=== PATIENT | female | born 1970 | race Caucasian/White ===

== ENCOUNTER 2016-12-09 12:44 | Observation (INO) ==
--- NOTE | 2016-12-09 12:49 | Emergency Department Note ---
Disposition Clinical Impression: Left facial numbness, TIA (transient ischemic attack) Disposition: Admitted As Inpatient Condition: Good General Adult HPI - General Stated complaint: Neuro Symptoms Time Seen by Provider: 12/09/16 12:46 - Related Data Home Medications Medication Instructions Recorded Confirmed Albuterol Sulfate [Ventolin Hfa] 2 puff IH Q4H PRN 10/09/15 12/09/16 Duloxetine HCl [Cymbalta] 60 mg PO QAM 10/09/15 12/09/16 Gabapentin [Neurontin] 600 mg PO QID 10/09/15 12/09/16 Hyoscyamine Sulfate 0.125 mg PO TID PRN 10/09/15 12/09/16 Levalbuterol HCl [Xopenex Neb] 1.25 mg IH Q4H PRN 10/09/15 12/09/16 Montelukast [Singulair] 10 mg PO QAM 10/09/15 12/09/16 Omeprazole [PriLOSEC] 40 mg PO BID 10/09/15 12/09/16 Mometasone/Formoterol [Dulera 100 2 puff IH BID 04/16/16 12/09/16 Mcg/5 Mcg Inhaler] Potassium Chloride [Klor-Con] 10 meq PO DAILY 04/16/16 12/09/16 PredniSONE [Prednisone] 10 mg PO DAILY 04/16/16 12/09/16 Tiotropium [place] [Spiriva 2 puff IH DAILY 04/16/16 12/09/16 Respimat] TraZODone 100 mg PO HS 04/16/16 12/09/16 Nystatin POWDER [Nystop] 1 appl TP TID PRN 05/27/16 12/09/16 Ondansetron [Zofran ODT] 8 mg SL Q8H PRN 05/27/16 12/09/16 Alprazolam [Xanax 1 MG Tablet] 1 mg PO TID 12/09/16 12/09/16 Oxycodone HCl 15 mg PO Q4H PRN 12/09/16 12/09/16 Previous Rx's Medication Instructions Recorded Aspirin Enteric Coated [Aspirin EC] 81 mg PO DAILY #30 tablet. 12/10/16 Atorvastatin [Lipitor] 20 mg PO HS #30 tablet 12/10/16 Budesonide/Formoterol 160/4.5 2 puff IH BIDR inhaler 12/10/16 [Symbicort 160/4.5] Allergies Allergy/AdvReac Type Severity Reaction Status Date / Time hydrocodone [From Vicodin] Allergy Rash Verified 04/17/16 12:33 Sulfa (Sulfonamide Allergy Rash Verified 04/17/16 12:33 Antibiotics) Past Medical History - Past Medical History Medical history: Reports: asthma, COPD, GERD, hyperlipidemia, peripheral artery disease, pulmonary embolus, other Surgical history: Reports: appendectomy, cholecystectomy, other Psychiatric history: Reports: anxiety, depression - Social History Smoking Status: Current every day smoker Smokeless Tobacco Status: No Alcohol use: Reports: none Drug use: Reports: none Course Vital Signs Temperature 98 F 12/09/16 12:47 Pulse Rate 86 12/09/16 12:47 Respiratory Rate 18 12/09/16 12:47 Blood Pressure 127/60 12/09/16 12:47 O2 Sat by Pulse Oximetry 99 12/09/16 12:47 Temperature 98.4 F 12/10/16 12:16 Pulse Rate 98 12/10/16 12:16 Respiratory Rate 18 12/10/16 12:16 Blood Pressure 99/65 12/10/16 12:16 O2 Sat by Pulse Oximetry 96 12/10/16 12:16 Oxygen Delivery Oxygen Delivery Room Air Medical Decision Making - Lab Data Result diagrams: 12/10/16 05:40 12/10/16 06:45 Lab Results 12/09/16 12/09/16 12/09/16 Range/Units 12:49 13:00 13:00 WBC 11.2 H (4.3-11.1) K/mcL RBC 4.58 (3.82-4.97) M/mcL Hgb 12.8 (11.5-15.4) g/dL Hct 42.2 (35.3-44.9) % MCV 92.1 (83.0-100.0) fL MCH 27.9 L (28.0-33.3) pg MCHC 30.3 L (31.6-35.5) g/dL RDW 15.0 H (11.5-14.5) % Plt Count 340 (140-400) K/mcL MPV 9.3 L (9.4-12.4) fL Immature Gran % 0.3 (0-4) % Seg Neutrophils % 66.6 % Lymphocytes % 24.1 % Monocytes % 5.7 % Eosinophils % 2.9 % Basophils % 0.4 % Neutrophils # 7.5 (1.6-8.9) K/mcL Lymphocytes # 2.7 (0.6-4.6) K/mcL Monocytes # 0.6 (0.0-1.3) K/mcL Eosinophils # 0.3 (0.0-0.6) K/mcL Basophils # 0.1 (0.0-0.2) K/mcL Sodium 138 (136-145) mEq/L Potassium 4.3 (3.5-4.5) mEq/L Chloride 102 (98-109) mEq/L Carbon Dioxide 29 (19-29) mEq/L BUN 6 L (7-20) mg/dL Creatinine 0.65 (0.57-1.11) mg/dL Est GFR ( Amer) > 60 (> 60) Est GFR (Non-Af Amer) > 60 (> 60) BUN/Creatinine Ratio 9 (6-26) Glucose 97 (70-99) mg/dL POC Glucose 98 H (58-89) Calculated Osmolality 284 (280-300) Calcium 9.4 (8.6-10.8) mg/dL Troponin I (0-0.03) ng/mL 12/09/16 Range/Units 13:00 WBC (4.3-11.1) K/mcL RBC (3.82-4.97) M/mcL Hgb (11.5-15.4) g/dL Hct (35.3-44.9) % MCV (83.0-100.0) fL MCH (28.0-33.3) pg MCHC (31.6-35.5) g/dL RDW (11.5-14.5) % Plt Count (140-400) K/mcL MPV (9.4-12.4) fL Immature Gran % (0-4) % Seg Neutrophils % % Lymphocytes % % Monocytes % % Eosinophils % % Basophils % % Neutrophils # (1.6-8.9) K/mcL Lymphocytes # (0.6-4.6) K/mcL Monocytes # (0.0-1.3) K/mcL Eosinophils # (0.0-0.6) K/mcL Basophils # (0.0-0.2) K/mcL Sodium (136-145) mEq/L Potassium (3.5-4.5) mEq/L Chloride (98-109) mEq/L Carbon Dioxide (19-29) mEq/L BUN (7-20) mg/dL Creatinine (0.57-1.11) mg/dL Est GFR ( Amer) (> 60) Est GFR (Non-Af Amer) (> 60) BUN/Creatinine Ratio (6-26) Glucose (70-99) mg/dL POC Glucose (58-89) Calculated Osmolality (280-300) Calcium (8.6-10.8) mg/dL Troponin I 0.00 (0-0.03) ng/mL Attestation Statement - Attestation Attestation: I examined this patient and my medical decision-making was reviewed with the GARMENT MANUFACTURER/PA/Advanced Practice Nurse/Resident Physician. I agree with the documented findings, disposition and treatment plan as described except to the extent set forth below. [id number] time provided Symptoms started at 11:30 which is one hour and 45 minutes prior to arrival. She complains of left-sided facial numbness. She is very anxious appearing. She is visibly dyspneic and has not existing history of oxygen-dependent COPD. 13:48: I discussed this case with the telemedicine neurologist who does not recommend TPA due to NIH of 1. He recommends CTA neck and admission to our medical facility if the patient does not have large vessel occlusive disease in her neck
--- NOTE | 2016-12-09 12:57 | Emergency Department Note ---
Disposition Clinical Impression: Left facial numbness TIA (transient ischemic attack) Qualifiers: Transient cerebral ischemia type: unspecified Qualified Code(s): G45.9 - Transient cerebral ischemic attack, unspecified Disposition: Admitted As Inpatient Condition: Good Referrals: Kiley Freeman CNP [Primary Care Provider] - Time of Disposition: 15:33 Neuro HPI - General Chief Complaint: ED Neuro Symptoms/Deficit Stated Complaint: Neuro Symptoms Time Seen by Provider: 12/09/16 12:46 Source: patient Mode of arrival: ambulatory Limitations: no limitations Nursing Notes Reviewed: Yes Vital Signs Reviewed: Yes - History of Present Illness HPI Narrative: Patient is a 46-year-old female with past medical history of COPD, peripheral vascular disease, neuropathy of bilateral lower extremities. She presents today due to left-sided facial numbness. She states that this began around 11: 30 AM, roughly 1 hour prior to arrival. She denies any other numbness, tingling , weakness. She does admit to shortness of breath worsened from her baseline. She uses 3 L of nasal cannula oxygen at home for COPD. Denies any chest pain, nausea, vomiting, fevers, abdominal pain. - Related Data Home Medications: Home Medications Medication Instructions Recorded Confirmed Albuterol Sulfate [Ventolin Hfa] 2 puff IH Q4H PRN 10/09/15 05/27/16 Duloxetine HCl [Cymbalta] 60 mg PO QAM 10/09/15 05/27/16 Furosemide [Lasix] 40 mg PO QAM 10/09/15 05/27/16 Gabapentin [Neurontin] 600 mg PO QID 10/09/15 05/27/16 Hyoscyamine Sulfate 0.125 mg PO TID PRN 10/09/15 05/27/16 Levalbuterol HCl [Xopenex Neb] 1.25 mg IH Q4H PRN 10/09/15 05/27/16 Montelukast [Singulair] 10 mg PO QAM 10/09/15 05/27/16 Omeprazole [PriLOSEC] 40 mg PO BID 10/09/15 05/27/16 OxyCODONE ER (12 HR) [OxyCONTIN] 15 mg PO Q4H PRN 10/09/15 05/27/16 LORazepam [Ativan] 2 mg PO TID 04/16/16 05/27/16 Mometasone/Formoterol [Dulera 100 2 puff IH BID 04/16/16 05/27/16 Mcg/5 Mcg Inhaler] Potassium Chloride [Klor-Con] 10 meq PO DAILY 04/16/16 05/27/16 PredniSONE [Prednisone] 50 mg PO DAILY 04/16/16 05/27/16 Tiotropium [place] [Spiriva 2 puff IH DAILY 04/16/16 05/27/16 Respimat] TraZODone 100 mg PO HS 04/16/16 05/27/16 Amoxicillin/Clavulanate [Augmentin] 875 mg PO BID 05/27/16 05/27/16 Diclofenac Sodium [Voltaren] 1 appl TP QID 05/27/16 05/27/16 Nystatin POWDER [Nystop] 1 appl TP TID PRN 05/27/16 05/27/16 Ondansetron [Zofran ODT] 8 mg SL Q8H PRN 05/27/16 05/27/16 Allergies/Adverse Reactions: Allergies Allergy/AdvReac Type Severity Reaction Status Date / Time hydrocodone [From Vicodin] Allergy Rash Verified 04/17/16 12:33 Sulfa (Sulfonamide Allergy Rash Verified 04/17/16 12:33 Antibiotics) Constitutional: Denies: fever Eyes: Denies: eye pain ENT ED: Denies: ear pain Cardiovascular: Denies: chest pain Respiratory: Reports: cough, dyspnea, wheezes Gastrointestinal: Denies: abdominal pain, nausea, vomiting, diarrhea Genitourinary: Denies: urgency Musculoskeletal: Denies: back pain Integumentary: Denies: rash Neurological: Reports: numbness. Denies: headache, weakness, paresthesias Past Medical History - Past Medical History Attestation: Yes The following information was validated with the patient. Source: patient Medical history: Reports: asthma, COPD, GERD, hyperlipidemia, peripheral artery disease, pulmonary embolus, other Surgical history: Reports: appendectomy, cholecystectomy, other Psychiatric history: Reports: anxiety, depression - Social History Smoking Status: Current every day smoker Smokeless Tobacco Status: No Alcohol use: Reports: none Drug use: Reports: none Physical Exam - General Limitations: no limitations General appearance: alert, anxious - Head Head exam: atraumatic, normocephalic, normal inspection - Eye Eye exam: Present: normal appearance, PERRL, EOMI - ENT ENT exam: normal exam, normal oropharynx, mucous membranes moist - Neck Neck exam: Present: normal inspection, full ROM, trachea midline - Chest Chest inspection: Present: normal inspection, symmetric chest wall rise - Respiratory Respiratory exam: Present: wheezes (end expiratory wheezes in all lung matta) - Cardiovascular Cardiovascular exam: Present: regular rate, normal rhythm, normal heart sounds - Abdominal Exam Abdominal exam: Present: soft, Non-Tender. Absent: tenderness, distention, guarding, rebound, rigidity - Extremities Exam Extremities exam: Present: other (Mild pedal edema bilateral lower extremities, decreased sensation of bilateral lower extremities chronic for the patient.). Absent: tenderness - Neurological Exam Neurological exam: Present: alert, oriented X3, motor sensory deficit ( Decreased sensation of left forehead, left cheek, left chin to light touch.) - Psychiatric Psychiatric exam: Present: normal affect, anxious - Skin Skin exam: Present: warm, dry, intact, normal color Course Course Narrative: On exam, patient had decreased sensation on the left forehead, left cheek, left chin to light touch. Otherwise, the rest of the neuro exam was intact. NIH score 1. Will obtain a basic blood work, CT head, stroke alert was activated. Patient refused any breathing tx for shortness of breath and wheeze. 13:39 visit blood work showed mild leukocytosis. Otherwise, the rest of the blood work was not concerning. Troponin negative. EKG normal sinus rhythm with no acute ST changes. Chest x-ray negative for any acute cardiopulmonary process. CT of the head was negative for any acute intracranial process. Currently waiting on [facility] to telestroke or call me back. 13:45 Dr. Brown spoke to [facility] neurologists. He did not recommend TPA at this time. He recommended CTA of the neck. If negative for any large vessel occlusive disease, he recommended admission to [facility] for further care and workup. 15:20 CTA of neck negative for any acute abnormality. WIll admit to hospital for further care. Chest X-Ray 12/09/16 12:51 IMPRESSION: 1. No acute abnormality. D/ / Prashant Saenz MD / Prashant Saenz MD Interpreting Provider: Prashant Saenz MD Head CT 12/09/16 12:51 IMPRESSION: No acute intracranial abnormality. Critical results were called by Dr. Prashant Marsh MD to Dennis Mars on 12/09/2016 at 13:22. D/ / Prashant Marsh MD / Prashant Marsh MD Interpreting Provider: Prashant Marsh MD Neck CTA 12/09/16 13:48 IMPRESSION: Unremarkable CTA of the neck. D/ / Rock Garcia MD / Rock Garcia MD Interpreting Provider: Rock Garcia MD Vital Signs Temperature 98 F 12/09/16 12:47 Pulse Rate 86 12/09/16 12:47 Respiratory Rate 18 12/09/16 12:47 Blood Pressure 127/60 12/09/16 12:47 O2 Sat by Pulse Oximetry 99 12/09/16 12:47 Temperature 98 F 12/09/16 12:47 Pulse Rate 80 12/09/16 14:50 Respiratory Rate 18 12/09/16 14:50 Blood Pressure 119/91 12/09/16 14:50 O2 Sat by Pulse Oximetry 97 12/09/16 14:50 Oxygen Delivery Oxygen Delivery Room Air Neuro Symptoms/Deficit - MDM Narrative Medical decision making narrative: On exam, patient had decreased sensation on the left forehead, left cheek, left chin to light touch. Otherwise, the rest of the neuro exam was intact. NIH score 1. Will obtain a basic blood work, CT head, stroke alert was activated. Patient refused any breathing tx for shortness of breath and wheeze. 13:39 visit blood work showed mild leukocytosis. Otherwise, the rest of the blood work was not concerning. Troponin negative. EKG normal sinus rhythm with no acute ST changes. Chest x-ray negative for any acute cardiopulmonary process. CT of the head was negative for any acute intracranial process. Currently waiting on [facility] to telestroke or call me back. 13:45 Dr. Brown spoke to [facility] neurologists. He did not recommend TPA at this time. He recommended CTA of the neck. If negative for any large vessel occlusive disease, he recommended admission to [facility] for further care and workup. 15:20 CTA of neck negative for any acute abnormality. WIll admit to hospital for further care. - Medical Records Medical records reviewed: Yes I reviewed the patient's medical records. - Lab Data Lab results reviewed: Yes I reviewed the patient's lab results. Result diagrams: 12/09/16 13:00 12/09/16 13:00 Lab Results 12/09/16 12/09/16 12/09/16 Range/Units 12:49 13:00 13:00 WBC 11.2 H (4.3-11.1) K/mcL RBC 4.58 (3.82-4.97) M/mcL Hgb 12.8 (11.5-15.4) g/dL Hct 42.2 (35.3-44.9) % MCV 92.1 (83.0-100.0) fL MCH 27.9 L (28.0-33.3) pg MCHC 30.3 L (31.6-35.5) g/dL RDW 15.0 H (11.5-14.5) % Plt Count 340 (140-400) K/mcL MPV 9.3 L (9.4-12.4) fL Immature Gran % 0.3 (0-4) % Seg Neutrophils % 66.6 % Lymphocytes % 24.1 % Monocytes % 5.7 % Eosinophils % 2.9 % Basophils % 0.4 % Neutrophils # 7.5 (1.6-8.9) K/mcL Lymphocytes # 2.7 (0.6-4.6) K/mcL Monocytes # 0.6 (0.0-1.3) K/mcL Eosinophils # 0.3 (0.0-0.6) K/mcL Basophils # 0.1 (0.0-0.2) K/mcL Sodium 138 (136-145) mEq/L Potassium 4.3 (3.5-4.5) mEq/L Chloride 102 (98-109) mEq/L Carbon Dioxide 29 (19-29) mEq/L BUN 6 L (7-20) mg/dL Creatinine 0.65 (0.57-1.11) mg/dL Est GFR ( Amer) > 60 (> 60) Est GFR (Non-Af Amer) > 60 (> 60) BUN/Creatinine Ratio 9 (6-26) Glucose 97 (70-99) mg/dL POC Glucose 98 H (58-89) Calculated Osmolality 284 (280-300) Calcium 9.4 (8.6-10.8) mg/dL Troponin I (0-0.03) ng/mL 12/09/16 Range/Units 13:00 WBC (4.3-11.1) K/mcL RBC (3.82-4.97) M/mcL Hgb (11.5-15.4) g/dL Hct (35.3-44.9) % MCV (83.0-100.0) fL MCH (28.0-33.3) pg MCHC (31.6-35.5) g/dL RDW (11.5-14.5) % Plt Count (140-400) K/mcL MPV (9.4-12.4) fL Immature Gran % (0-4) % Seg Neutrophils % % Lymphocytes % % Monocytes % % Eosinophils % % Basophils % % Neutrophils # (1.6-8.9) K/mcL Lymphocytes # (0.6-4.6) K/mcL Monocytes # (0.0-1.3) K/mcL Eosinophils # (0.0-0.6) K/mcL Basophils # (0.0-0.2) K/mcL Sodium (136-145) mEq/L Potassium (3.5-4.5) mEq/L Chloride (98-109) mEq/L Carbon Dioxide (19-29) mEq/L BUN (7-20) mg/dL Creatinine (0.57-1.11) mg/dL Est GFR ( Amer) (> 60) Est GFR (Non-Af Amer) (> 60) BUN/Creatinine Ratio (6-26) Glucose (70-99) mg/dL POC Glucose (58-89) Calculated Osmolality (280-300) Calcium (8.6-10.8) mg/dL Troponin I 0.00 (0-0.03) ng/mL - Radiology Data Radiology results reviewed: Yes I reviewed the patient's radiology results. Chest X-Ray 12/09/16 12:51 IMPRESSION: 1. No acute abnormality. D/ / Prashant Saenz MD / Prashant Saenz MD Interpreting Provider: Prashant Saenz MD Head CT 12/09/16 12:51 IMPRESSION: No acute intracranial abnormality. Critical results were called by Dr. Prashant Marsh MD to Dennis Mars on 12/09/2016 at 13:22. D/ / Prashant Marsh MD / Prashant Marsh MD Interpreting Provider: Prashant Marsh MD Neck CTA 12/09/16 13:48 IMPRESSION: Unremarkable CTA of the neck. D/ / Rock Garcia MD / Rock Garcia MD Interpreting Provider: Rock Garcia MD - EKG Data EKG attestation: Yes I reviewed and interpreted this EKG. EKG results narrative: 12/09/2016 at 12:58. Rate 86. SC interval 134. QRS 78. QTC 431. Normal axis. No acute ST elevation or depression. Unchanged from previous EKG on 05/25 NIH Stroke Scale - Level of Consciousness LOC: Alert - LOC Questions LOC Questions: Answers both correctly - LOC Commands LOC Commands: Performs both correctly - Best Gaze Best Gaze: Normal - Visual Visual: No visual loss - Facial Palsy Facial Palsy: Normal - Motor Arms Motor Arm-Left: No drift for 10 seconds Motor Arm-Right: No drift for 10 seconds - Motor Legs Motor Leg-Left: No drift for 5 seconds Motor Leg-Right: No drift for 5 seconds - Limb Ataxia Limb Ataxia: Absent of affected limb too weak to perform exam - Sensory Sensory: Mild to moderate loss, "not as sharp" - Best Language Best Language: No aphasia - Dysarthria Dysarthria: Normal - Extinction and Inattention Extinction and Inattention: Normal - NIHSS Total Score NIHSS Total Score: 1 TPA Checklist - LKW: 3-4.5 hrs Add. Contraindications Patient/family understanding: The patient/family members have been counseled and understood the risk, benefit , and alternatives of treatment. Virgilio - Virgilio Situation: Demographics, MOA Background: Presenting Complaint, Relevant PMH, Meds, & Allergies Assessment: Vital Signs, Course and respsone to treatment, Exam Concerns, Patient/Family Expectation, Pertinant Lab Results, Outstanding Labs Recommendation: Barrier(s) to disposition, Recommendation based on pending studies, treatments, or consults SCandis Report Given to: Dr Miguel Poole Repor Time: 15:23
[2016-12-09 13:08] LABS: Basophils # 0.1 K/mcL (0.0-0.2); Basophils % 0.4 %; Eosinophils # 0.3 K/mcL (0.0-0.6); Eosinophils % 2.9 %; Hematocrit 42.2 % (35.3-44.9); Hemoglobin 12.8 g/dL (11.5-15.4); Immature Granulocytes % 0.3 % (0-4); Lymphocytes # 2.7 K/mcL (0.6-4.6); Lymphocytes % 24.1 %; Mean Corpuscular HGB Conc 30.3 g/dL (31.6-35.5); Mean Corpuscular Hemoglobin 27.9 pg (28.0-33.3); Mean Corpuscular Volume 92.1 fL (83.0-100.0); Mean Platelet Volume 9.3 fL (9.4-12.4); Monocytes # 0.6 K/mcL (0.0-1.3); Monocytes % 5.7 %; Neutrophils # 7.5 K/mcL (1.6-8.9); Red Blood Count 4.58 M/mcL (3.82-4.97); Segmented Neutrophils % 66.6 %
[2016-12-09 13:11] LABS: Platelet Count 340 K/mcL (140-400)
[2016-12-09 13:20] LABS: BUN/Creatinine Ratio 9 (6-26); Blood Urea Nitrogen 6 mg/dL (7-20); Calcium 9.4 mg/dL (8.6-10.8); Carbon Dioxide 29 mEq/L (19-29); Chloride 102 mEq/L (98-109); Glucose 97 mg/dL (70-99); Osmolality,Calculated 284 (280-300); Potassium 4.3 mEq/L (3.5-4.5); Sodium 138 mEq/L (136-145); eGFR For African Americans > 60 (> 60); eGFR For Non-African Americans > 60 (> 60)
[2016-12-09] MEDS ORDERED: Ondansetron ODT 4 MG TAB.RAPDIS SL PRN (17:36)
[2016-12-09] MEDS ORDERED: Nystatin POWDER 30 GM BOTTLE TP PRN (17:36)
[2016-12-09] MEDS ORDERED: Levalbuterol Neb 1.25 MG/3 ML IH PRN (17:36)
--- NOTE | 2016-12-09 17:36 | Internal Med History&Physical ---
Date of Encounter: 12/09/16 Time of Encounter: 17:30 Assessment and Plan (1) TIA (transient ischemic attack) Current visit: Yes Status: Acute Patient has left facial phenotype with easier. Suspect TIA. CT scan shows no evidence to bleed. MRI of the brain without contrast will be checked in a.m. Neurology consultation. NIH stroke scale Q4 hours. Full neurology workup including echocardiogram carotid Doppler's speech therapy physical therapy occupational therapy to see the patient. Patient has been evaluated by neurologist at [facility]. NIH stroke skills only one. No TPA. I will start the patient on aspirin and statin. Heparin for DVT prophylaxis Qualifiers: Transient cerebral ischemia type: unspecified Qualified Code(s): G45.9 - Transient cerebral ischemic attack, unspecified (2) Chronic obstructive pulmonary disease without exacerbation Current visit: Yes Status: Acute Stable. She is a chronic steroids continue. Continue nebulizer treatments. (3) Peripheral neuropathy Current visit: Yes Status: Acute Qualifiers: Qualified Code(s): G62.9 - Polyneuropathy, unspecified (4) History of pulmonary embolism Current visit: Yes Status: Acute Received CoURSE OF XARELTO currently off it. Internal Medicine - H&P: HPI Chief complaint: left side facial numbness History of present illness: Ms. Stratton is a 46 year old female was morbidly obese with multiple medical problems including history of PE used between anticoagulation was around to, peripheral vascular disease, COPD on 3 L nighttime oxygen, restless leg syndrome , peripheral neuropathy presents to emergency room today with left facial numbness. Patient mentioned that since 11:30 AM she started complaining of numbness in the left side of the face and neck. She also noticed slurring over speech. She denies any focal weakness or facial symmetry. No numbness in her left side of the body other than face and neck. Her symptoms have gradually been improving. Neurology consult with [facility] I advised against administering any TPA. There recommended seachange amount of the neck which showed no evidence of vascular pathology. Patient feels that her speech is back to normal during my interview still has some facial numbness however significantly improving. Patient denies any dizziness, gate unsteadiness, nausea, vomiting, headache, double vision. Past Med Surg Social Fam HX - Past Medical History Medical history: asthma, COPD, GERD, hyperlipidemia, peripheral artery disease, pulmonary embolus, other Psychiatric history: anxiety, depression - Past Surgical History Surgical History: appendectomy, cholecystectomy, other - Social History Smoking Status: Current every day smoker Smokeless Tobacco Status: No Alcohol use: none Drug use: none - Family History Mother Living Status: Still Living Hx Family Cardiac Disorders: Yes ([place]) Internal Medicine - H&P: Meds Albuterol Sulfate [Ventolin Hfa] 2 puff IH Q4H PRN 10/09/15 [History] Duloxetine HCl [Cymbalta] 60 mg PO QAM 10/09/15 [History] Gabapentin [Neurontin] 600 mg PO QID 10/09/15 [History] Hyoscyamine Sulfate 0.125 mg PO TID PRN 10/09/15 [History] Levalbuterol HCl [Xopenex Neb] 1.25 mg IH Q4H PRN 10/09/15 [History] Montelukast [Singulair] 10 mg PO QAM 10/09/15 [History] Omeprazole [PriLOSEC] 40 mg PO BID 10/09/15 [History] Mometasone/Formoterol [Dulera 100 Mcg/5 Mcg Inhaler] 2 puff IH BID 04/16/16 [ History] Potassium Chloride [Klor-Con] 10 meq PO DAILY 04/16/16 [History] PredniSONE [Prednisone] 10 mg PO DAILY 04/16/16 [History] Tiotropium [place] [Spiriva Respimat] 2 puff IH DAILY 04/16/16 [History] TraZODone 100 mg PO HS 04/16/16 [History] Diclofenac Sodium [Voltaren] 1 appl TP QID PRN 05/27/16 [History] Nystatin POWDER [Nystop] 1 appl TP TID PRN 05/27/16 [History] Ondansetron [Zofran ODT] 8 mg SL Q8H PRN 05/27/16 [History] Alprazolam [Xanax 1 MG Tablet] 1 mg PO TID 12/09/16 [History] Oxycodone HCl 15 mg PO Q4H PRN 12/09/16 [History] Allergies hydrocodone [From Vicodin] Allergy (Verified 04/17/16 12:33) Rash Sulfa (Sulfonamide Antibiotics) Allergy (Verified 04/17/16 12:33) Rash All Systems PM: A 10-system review of systems was performed and is negative for pertinent findings except as documented above in the HPI. Review of systems: 10 point review of systems is negative except for HPI - Constitutional Vitals: Temp Pulse Resp BP Pulse Ox 97.9 F 85 16 117/80 96 12/09/16 17:05 12/09/16 17:05 12/09/16 17:05 12/09/16 17:05 12/09/16 17:05 Exam: Gen.: patient is alert oriented not in distress. Cardiac: Normal S1 S2 no additional sounds or murmurs chest: clear to auscultation abdomen soft nontender nondistended normal bowel sounds lower extremity: lax calf muscles neuro left facial hemihypothesia but crude touch same. Motor power 5/5 in all extremeties, CN 2-12 intact. speech normal. Cerebeller signs normal. Internal Med - H&P Results - Labs CBC & Chem 7: 12/09/16 13:00 12/09/16 13:00
[2016-12-09] MEDS: Aspirin Enteric Coated 81 MG Tablet PO SCH (18:15)
[2016-12-09] MEDS: *HR* OxyCODONE Immed Rel 15 MG TABLET PO PRN ×2 (18:16→22:19)
--- NOTE | 2016-12-09 19:27 | Electrocardiograph Report ---
[facility] Vizibility Test Date: 2016-12-09 Pat Name: Sariah Stratton Department: 104 Room: 2NE29 Gender: F Poultry Cleaner: EC : 1970 Requested By: Joon Brown Order Number: [id number] Reading MD: Phoebe Cerna DO Measurements Intervals [place] Rate: 86 P: 69 AL: 134 QRS: 30 QRSD: 78 T: 30 QT: 388 QTc: 431 Interpretive Statements SINUS RHYTHM WITH OCCASIONAL VENTRICULAR PREMATURE COMPLEXES LOW QRS VOLTAGE IN PRECORDIAL LEADS Electronically Signed On 12-09-2016 19:25:47 EDT by Phoebe Cerna DO
[2016-12-09] MEDS: ALPRAZolam 1 MG TABLET PO SCH (20:59)
[2016-12-09] MEDS: Gabapentin 300 MG CAPSULE PO SCH (20:59)
[2016-12-09] MEDS: Famotidine 20 MG TABLET PO SCH (21:00)
[2016-12-09] MEDS: *HR* Heparin 5,000 UNIT/ML VIAL SQ SCH (21:00)
[2016-12-09] MEDS ORDERED: (Mometasone/Formoterol [Dulera 100 Mcg/5 Mcg Inhaler]) IH SCH (21:00)
[2016-12-09] MEDS ORDERED: traZODone 50 MG TABLET PO SCH (21:00)
[2016-12-09] MEDS: Nicotine 21 MG PATCH.TD24 TD SCH (22:17)
[2016-12-10] MEDS: *HR* OxyCODONE Immed Rel 15 MG TABLET PO PRN ×4 (02:19→14:52)
[2016-12-10] MEDS: *HR* Heparin 5,000 UNIT/ML VIAL SQ SCH ×2 (05:07→14:45)
[2016-12-10 06:06] LABS: Basophils % 0.5 %; Eosinophils # 0.3 K/mcL (0.0-0.6); Eosinophils % 4.3 %; Hematocrit 37.2 % (35.3-44.9); Hemoglobin 11.3 g/dL (11.5-15.4); Immature Granulocytes % 0.3 % (0-4); Lymphocytes # 2.7 K/mcL (0.6-4.6); Lymphocytes % 34.7 %; Mean Corpuscular HGB Conc 30.4 g/dL (31.6-35.5); Mean Corpuscular Hemoglobin 28.2 pg (28.0-33.3); Mean Corpuscular Volume 92.8 fL (83.0-100.0); Monocytes # 0.6 K/mcL (0.0-1.3); Monocytes % 7.7 %; Neutrophils # 4.1 K/mcL (1.6-8.9); Platelet Count 283 K/mcL (140-400); Red Blood Count 4.01 M/mcL (3.82-4.97); Red Cell Distribution Width 14.9 % (11.5-14.5); Segmented Neutrophils % 52.5 %
[2016-12-10 07:23] LABS: BUN/Creatinine Ratio 15 (6-26); Blood Urea Nitrogen 9 mg/dL (7-20); Calcium 8.9 mg/dL (8.6-10.8); Carbon Dioxide 27 mEq/L (19-29); Chloride 105 mEq/L (98-109); Glucose 91 mg/dL (70-99); Magnesium 1.8 mg/dL (1.6-2.6); Osmolality,Calculated 288 (280-300); Potassium 4.1 mEq/L (3.5-4.5); Sodium 140 mEq/L (136-145); eGFR For African Americans > 60 (> 60); eGFR For Non-African Americans > 60 (> 60)
[2016-12-10] MEDS ORDERED: (Tiotropium Bromide [Spiriva Respimat] 2 PUFF) IH SCH (09:00)
[2016-12-10] MEDS ORDERED: predniSONE 10 MG TABLET PO SCH (09:00)
[2016-12-10] MEDS ORDERED: Tiotropium 18 MCG inhalation IH SCH (10:00)
[2016-12-10] MEDS ORDERED: Budesonide/Formoterol 160/4.5 MDI IH SCH (10:00)
[2016-12-10] MEDS: Aspirin Enteric Coated 81 MG Tablet PO SCH (10:08)
[2016-12-10] MEDS: Gabapentin 300 MG CAPSULE PO SCH ×2 (10:12→13:24)
[2016-12-10] MEDS: Nicotine 21 MG PATCH.TD24 TD SCH (10:13)
[2016-12-10] MEDS: Famotidine 20 MG TABLET PO SCH (10:14)
[2016-12-10] MEDS: ALPRAZolam 1 MG TABLET PO SCH ×2 (10:16→14:44)
--- NOTE | 2016-12-10 10:40 | ECHO - Doppler Report ---
Echo with Saline Contrast Name: Sariah Stratton Date of Study: 12/10/2016 Date: 1970 Ht: 62.0 in Medical Record#: [id number] Age: 46 Wt: 236.0 lb Gender: Female BSA: 2.05 Order #: [id number] Location: [facility] Room #: [id number] Reading Physician: Rafael Oro MD, [facility] [employer] Supervisor: Landen Pastor RN Ordering Physician: Moises Rivera MD Primary Physician: Kiley Freeman CNP Indications: Transient Ischemic Attack Impressions: Normal LV systolic function, LVEF 60-65%. Normal left ventricular diastolic function. Normal right ventricular size and function. No significant valvular dysfunction. No evidence of intracardiac shunting with agitated saline contrast. Left Ventricular Wall Motion: Rest Echo Findings All wall segments showed normal motion. Findings: Study Quality * Technically adequate exam. ECG Findings * Normal sinus rhythm. Left Ventricle * Normal LV systolic function, LVEF 60-65%. * Normal LV chamber size and wall thickness. * Normal left ventricular diastolic function. Right Ventricle * Normal right ventricular size and function. Left Atrium * Normal left atrial size. Right Atrium * Normal right atrial size. Interatrial Septum * No evidence of intracardiac shunting with agitated saline contrast. Aorta * Normally sized aortic root. Pericardium * There is no pericardial effusion present. IVC * Normal IVC dimensions and inspiratory collapse. Aortic Valve * Aortic valve not well visualized. Appears trileaflet. * No aortic stenosis. * No aortic regurgitation. Mitral Valve * Normal mitral valve structure. * No mitral stenosis. * Trace mitral regurgitation. Tricuspid Valve * Normal tricuspid valve structure. * No tricuspid stenosis. * Trace tricuspid regurgitation. * Unable to estimate RVSP due to lack of TR jet. Pulmonic Valve * Pulmonic valve not well visualized. * No pulmonic stenosis. * Trace pulmonic regurgitation. History History of Smoking Years 32 Packs 1 Family History of CAD 03/20/2015 a Previous Echo was performed. Contrast: Agitated saline 20 ml. Measurements: BP: 99/ 52 2D Normal Values RVIDd: 2.60 cm IVSd: 1.00 cm 0.6 - 1.0 cm LVIDd: 4.50 cm 3.7 - 5.6 cm LVPWd: 1.00 cm 0.6 - 1.1 cm LVIDs: 3.00 cm 1.5 - 3.6 cm AO: 2.50 cm < 4.0 cm %FS: 33.30 cm >25 % LA volume: 44 Mitral Valve Peak E:.81 m/sec Peak A:.61 m/sec E/A Ratio:1.3 Updated by Rafael Oro MD, [facility] on 12/10/2016 10:35:31 AM electronically signed on 12/10/2016 10:36:14 AM with status of Final Wall Motion Valadez: 1=Normal, 2=Hypokinesis, 3=Akinesis, 4=Dyskinesis, 5=Aneurysmal, 6=Hyperkinetic, X=Not Visualized (Blank)=Missing
[2016-12-10 12:19] VITALS: BP 99/65
--- NOTE | 2016-12-10 15:19 | Discharge Summary ---
Date of Encounter: 12/09/16 Time of Encounter: 15:15 - Discharge Diagnosis (1) TIA (transient ischemic attack) Priority: Primary Status: Acute Qualifiers: Transient cerebral ischemia type: unspecified Qualified Code(s): G45.9 - Transient cerebral ischemic attack, unspecified (2) Left facial numbness Priority: Primary Status: Acute (3) Tobacco use disorder Priority: Secondary Status: Acute (4) Chronic obstructive pulmonary disease without exacerbation Priority: Secondary Status: Acute (5) Morbid obesity Priority: Secondary Status: Acute Qualifiers: Obesity type: due to excess calories Qualified Code(s): E66.01 - Morbid ( severe) obesity due to excess calories - Discharge Medications Prescriptions: Aspirin Enteric Coated [Aspirin EC] 81 mg PO DAILY #30 tablet. Atorvastatin [Lipitor] 20 mg PO HS #30 tablet Home Medications: Albuterol Sulfate [Ventolin Hfa] 2 puff IH Q4H PRN 10/09/15 [History] Duloxetine HCl [Cymbalta] 60 mg PO QAM 10/09/15 [History] Gabapentin [Neurontin] 600 mg PO QID 10/09/15 [History] Hyoscyamine Sulfate 0.125 mg PO TID PRN 10/09/15 [History] Levalbuterol HCl [Xopenex Neb] 1.25 mg IH Q4H PRN 10/09/15 [History] Montelukast [Singulair] 10 mg PO QAM 10/09/15 [History] Omeprazole [PriLOSEC] 40 mg PO BID 10/09/15 [History] Mometasone/Formoterol [Dulera 100 Mcg/5 Mcg Inhaler] 2 puff IH BID 04/16/16 [ History] Potassium Chloride [Klor-Con] 10 meq PO DAILY 04/16/16 [History] PredniSONE [Prednisone] 10 mg PO DAILY 04/16/16 [History] Tiotropium [place] [Spiriva Respimat] 2 puff IH DAILY 04/16/16 [History] TraZODone 100 mg PO HS 04/16/16 [History] Nystatin POWDER [Nystop] 1 appl TP TID PRN 05/27/16 [History] Ondansetron [Zofran ODT] 8 mg SL Q8H PRN 05/27/16 [History] Alprazolam [Xanax 1 MG Tablet] 1 mg PO TID 12/09/16 [History] Oxycodone HCl 15 mg PO Q4H PRN 12/09/16 [History] Aspirin Enteric Coated [Aspirin EC] 81 mg PO DAILY #30 tablet. 12/10/16 [Rx] Atorvastatin [Lipitor] 20 mg PO HS #30 tablet 12/10/16 [Rx] Budesonide/Formoterol 160/4.5 [Symbicort 160/4.5] 2 puff IH BIDR inhaler [Rx] Allergies/Adverse Reactions: Allergies hydrocodone [From Vicodin] Allergy (Verified 04/17/16 12:33) Rash Sulfa (Sulfonamide Antibiotics) Allergy (Verified 04/17/16 12:33) Rash Procedures/tests Complete & Pending: Procedures Performed prior 72 hours Category Date Time Status MR head/brain wo con [MR] Routine MRI 12/09/16 17:08 Completed EV carotid duplex imaging BI Routine Y 12/10/16 17:02 Completed EV echocardiogram Routine Y 12/10/16 17:02 Completed Date of admission: 12/09/16 15:45 Primary care physician: Kiley Freeman CNP Consults: 12/09/16 17:02 Consult to Occupational Therapy [CONS] Routine Comment: Evaluate, develop and implement POC Consult to Physical Therapy [CONS] Routine Comment: Evaluate, develop and implement POC Consult to Speech Therapy [CONS] Routine Comment: Evaluate, develop and implement POC Reason for Consult: Tia Call Completed: No Discharging clinician: Cruzito Mccracken - Patient Status Disposition: Home, Self-Care Condition: Good Functional capacity at discharge: independent ambulation Overall status at discharge: patient is progressing back to baseline - Discharge Instructions Instructions: Transient Ischemic Attack (DC), Transient Ischemic Attack (GEN), Asthma (DC), Chronic Obstructive Pulmonary Disease (DC), Cigarette Smoking and Your Health, Workers' Compensation Claims Supervisor (GEN), Transient Ischemic Attack, Workers' Compensation Claims Supervisor ( GEN) Follow Up With: Kiley Freeman CNP [Primary Care Provider] - Rafael Crum DO [Partnered Physician] - Forms: ED Satisfaction Letter - Diet and Activity Activity: increase activity as tolerated Diet: low fat, low cholesterol Interval History: Ms. Stratton is a 46 year old female was morbidly obese with multiple medical problems including history of PE used between anticoagulation was around to, peripheral vascular disease, COPD on 3 L nighttime oxygen, restless leg syndrome , peripheral neuropathy presents to emergency room today with left facial numbness. Patient mentioned that since 11:30 AM she started complaining of numbness in the left side of the face and neck. She also noticed slurring over speech. She denies any focal weakness or facial symmetry. No numbness in her left side of the body other than face and neck. Her symptoms have gradually been improving. Neurology consult with [facility] I advised against administering any TPA. There recommended seachange amount of the neck which showed no evidence of vascular pathology. Patient feels that her speech is back to normal during my interview still has some facial numbness however significantly improving. Patient denies any dizziness, gate unsteadiness, nausea, vomiting, headache, double vision Hospital course: Patient was hospitalized. CT head: Negative for any acute infarct. MRI head: Negative for any acute infarct. CTA neck: Negative for any obstruction. Ultrasound carotid: No obstructive lesion. This was a tentative report the final report is not finalized yet Echocardiogram: Ejection fraction 55% All results were discussed with the patient at length. Patient was prescribed aspirin 81 mg. Patient was prescribed Lipitor. Side effects of the new medication prescription discussed along with the effects at length. Patient verbalized understanding Looking incision discussed with the patient and her for more than 20 minutes. Plan: Patient can go home today. She will follow-up with PCP in 1-2 weeks. She will follow up with urology in 1-2 weeks. At time of discharge patient does not have any question concern uopdates or recommendations regarding her stay. - Time Spent with Patient Total time spent providing and/or coordinating discharge services: - Constitutional Vitals: Temp Pulse Resp BP Pulse Ox 98.4 F 98 18 99/65 96 12/10/16 12:16 12/10/16 12:16 12/10/16 12:16 12/10/16 12:16 12/10/16 12:16 - Head Head exam: Present: atraumatic, normocephalic - Eye Eye exam: Present: PERRL, conjuntiva pink, sclera anicteric Pupils: Present: PERRL - Neck Neck exam general surgery: Present: supple, trachea midline. Absent: lymphadenopathy - Respiratory Respiratory exam: Present: CTAB. Absent: accessory muscle use, rales, rhonchi, wheezes - Cardiovascular Cardiovascular exam: Present: RRR, +S1, +S2. Absent: diastolic murmur, gallop, rubs, systolic murmur - GI/Abdominal GI/Abdominal exam: Present: normal bowel sounds, soft, no peritoneal signs. Absent: distended, tenderness - Extremities Exam Extremities exam: Present: warm, radial pulses palpable and symetrical. Absent : calf tenderness, cyanotic, pedal edema - Neurological Exam Neurological exam: Present: CN II-XII intact, oriented X3, no focal deficits. Absent: pronater drift, facial droop, speech deficit - Skin Skin exam: Present: dry, intact
--- NOTE | 2016-12-10 20:53 | Carotid Imaging Report ---
Carotid Duplex Patient Name:Sariah Stratton Order Number:[id number] Procedure Date:12/10/2016 Date:1970Age:46 yrs Gender:Female Lt BP:108 / 75 mmHg Rt.BP:99 / 74 mmHgHeart Rate: Location:[facility] Room #: 2NE29 Control Supervisor:Landen Pastor RN Referring MD:Moises Rivera MD vp home health:Kiley Freeman, RN ORTHO Reading MD:Yuniel Beckford MD , FACS Primary Indications:Transient Ischemic Attack Risk Factors Yes/No Hypertension No Diabetes No Hypercholesterolemia No Smoking Current Yes Hx of TIA No Hx of CVA No Anticoagulants No Hx of CAD/PTCA No Previous Vascular Surgery No Impressions: Findings: Bilateral carotid systems are essentially normal. Recommendations: Test completed on 12/10/2016 at 9:00:00 am. Findings Carotid Duplex: Jolley scale imaging combined with Doppler flow analysis suggests normal findings bilaterally. Right: The right proximal common carotid artery has a PSV of 147 cm/s and a EDV of 46 cm/s. The right mid common carotid artery has a PSV of 107 cm/s and a EDV of 36 cm/s. The right distal common carotid artery has a PSV of 79 cm/s and a EDV of 31 cm/s. The right bifurcation has a PSV of 75 cm/s and a EDV of 30 cm/s. The right proximal internal carotid artery has a PSV of 105 cm/s and a EDV of 38 cm/s. The right mid internal carotid artery has a PSV of 91 cm/s and a EDV of 34 cm/s. The right distal internal carotid artery has a PSV of 72 cm/s and a EDV of 34 cm/s. The right eca has a PSV of 118 cm/s and a EDV of 19 cm/s. The right vertebral artery has a PSV of 68 cm/s and a EDV of 22 cm/s. Left: The left proximal common carotid artery has a PSV of 138 cm/s and a EDV of 39 cm/s. The left mid common carotid artery has a PSV of 103 cm/s and a EDV of 31 cm/s. The left distal common carotid artery has a PSV of 93 cm/s and a EDV of 33 cm/s. The left bifurcation has a PSV of 101 cm/s and a EDV of 35 cm/s. The left proximal internal carotid artery has a PSV of 97 cm/s and a EDV of 34 cm/s. The left mid internal carotid artery has a PSV of 86 cm/s and a EDV of 31 cm/s. The left distal internal carotid artery has a PSV of 98 cm/s and a EDV of 42 cm/s. The left eca has a PSV of 121 cm/s and a EDV of 9 cm/s. The left vertebral artery has a PSV of 64 cm/s and a EDV of 22 cm/s. Prior Study: No prior study available for comparison. Carotid Results Right PSV EDV Assessment Proximal CCA 147 46 Normal Mid CCA 107 36 Normal Distal CCA 79 31 Normal Bifurcation 75 30 Normal Proximal ICA 105 38 Normal Mid ICA 91 34 Normal Distal ICA 72 34 Normal ECA 118 19 Normal Vertebral Artery 68 22 Normal Left PSV EDV Assessment Proximal CCA 138 39 Normal Mid CCA 103 31 Normal Distal CCA 93 33 Normal Bifurcation 101 35 Normal Proximal ICA 97 34 Normal Mid ICA 86 31 Normal Distal ICA 98 42 Normal ECA 121 9 Normal Vertebral Artery 64 22 Normal Ratio's Right ICA/CCA Ratio: 0.98 ICA/CCA Values: 105/107 Left ICA/CCA Ratio: 0.94 ICA/CCA Values: 97/103 Updated by Yuniel Beckford MD, FACS on 12/10/2016 8:47:52 PM Yuniel Beckford MD electronically signed on 12/10/2016 8:48:32 PM with status of Final
== END 2016-12-10 17:00 | disposition home or self-care (01) ==
LOC: EMEROO 12:44 → 2NENU 12:44
PROVIDERS: ADMIT Hospitalist; ATTEND Internal Medicine

== ENCOUNTER 2018-07-14 12:45 | Inpatient (IN) ==
--- NOTE | 2018-07-14 13:38 | Emergency Department Note ---
Disposition Clinical Impression: Right wrist pain, Failure of outpatient treatment Cat bite Qualifiers: Encounter type: initial encounter Qualified Code(s): W55.01XA - Bitten by cat, initial encounter Disposition: Admitted As Inpatient Condition: Fair Referrals: Kiley Freeman CNP [Primary Care Provider] - Time of Disposition: 14:48 Animal Bite HPI - General Chief Complaint: ED Animal Bite Stated Complaint: cat bite Time Seen by Provider: 07/14/18 13:12 Source: patient Limitations: no limitations Nursing Notes Reviewed: Yes Vital Signs Reviewed: Yes - History of Present Illness HPI Narrative: 48 year old female presents for a cat bite on right wrist. Patient states that 4 days ago, she got bit while trying to pet a stray cat. States she was bitten just once. The next day, she went to urgent care where she received an antibiotic shot and prescription for augmentin. The day after that, patient noti nithya increased swelling and hardness to area. Patient describes sharp shooting pain 8/10, worse with making a fist. Patient states that making a fist causes a "pulling" feeling on her forearm. Patient has been continuing augmentin. Has been using triple antibiotic ointment, alcohol, and ice. Tried tylenol without relief. Patient states that she can't hold anything with her right hand due to pain. Last tetanus shot was 4-5 years ago. Cat was not foaming at the mouth or acting unusual. Patient normally feeds the stray cats and states that she's petted that particular cat without issue before. - Related Data Home Medications Medication Instructions Recorded Confirmed ALPRAZolam [Xanax 1 MG Tablet] 1 mg PO TID PRN 02/01/18 02/01/18 Amoxicillin/Clavulanate [Augmentin] 875 mg PO BIDWM 02/01/18 02/01/18 Aspirin 81 mg PO DAILY 02/01/18 02/01/18 Atorvastatin Calcium [Lipitor] 20 mg PO HS 02/01/18 02/01/18 Cyclobenzaprine [Flexeril] 10 mg PO HS 02/01/18 02/01/18 Duloxetine HCl [Cymbalta] 60 mg PO DAILY 02/01/18 02/01/18 Fluticasone Propionate Nasal 1 spr NS DAILY PRN 02/01/18 02/01/18 [Flonase] Furosemide [Lasix] 20 mg PO DAILY PRN 02/01/18 02/01/18 Gabapentin [Neurontin] 600 mg PO QID 02/01/18 02/01/18 Hyoscyamine SL [Levsin SL] 0.125 mg SL TID 02/01/18 02/01/18 Mometasone/Formoterol [Dulera 200 2 puff IH BID 02/01/18 02/01/18 Mcg/5 Mcg Inhaler] Montelukast [Singulair] 10 mg PO HS 02/01/18 02/01/18 Omeprazole [PriLOSEC] 40 mg PO DAILY 02/01/18 02/01/18 Oxycodone HCl 15 mg PO 5XD 02/01/18 02/01/18 Potassium Chloride [K-Tab ER] 10 meq PO DAILY 02/01/18 02/01/18 Tiotropium [place] [Spiriva 2 puff IH DAILY 02/01/18 02/01/18 Respimat] Trazodone HCl 100 mg PO HS 02/01/18 02/01/18 Previous Rx's Medication Instructions Recorded Amoxicillin/Clavulanate [Augmentin] 875 mg PO BID #20 tablet 07/10/18 Allergies Allergy/AdvReac Type Severity Reaction Status Date / Time hydrocodone [From Vicodin] Allergy Rash Verified 07/10/18 15:35 Sulfa (Sulfonamide Allergy Swelling Verified 07/10/18 15:35 Antibiotics) of Lip/Tongue/Throat Buspirone [From BuSpar] AdvReac Difficulty Verified 07/10/18 15:35 Breathing cefdinir AdvReac Diarrhea Verified 07/10/18 15:35 clindamycin AdvReac Hives Verified 07/10/18 15:35 Constitutional: Denies: fever, chills Eyes: Denies: eye pain, eye discharge ENT ED: Denies: ear pain, throat pain Cardiovascular: Denies: chest pain, palpitations Respiratory: Denies: cough, dyspnea Gastrointestinal: Denies: abdominal pain, nausea Genitourinary: Denies: urgency, dysuria Musculoskeletal: Denies: back pain, neck pain Integumentary: Denies: rash, abrasion Neurological: Denies: headache, weakness Past Medical History - Past Medical History Medical history: Reports: non-contributory Surgical history: Reports: appendectomy, cholecystectomy, hysterectomy, other Psychiatric history: Reports: anxiety, depression - Social History Smoking Status: Current every day smoker Smokeless Tobacco Status: No Alcohol use: Reports: none Drug use: Reports: none Physical Exam - General Limitations: no limitations General appearance: alert, in no apparent distress - Head Head exam: atraumatic, normocephalic - Eye Eye exam: Present: PERRL, EOMI. Absent: scleral icterus, conjunctival injection - ENT ENT exam: normal oropharynx, mucous membranes moist - Neck Neck exam: Present: normal inspection - Chest Chest inspection: Present: normal inspection, symmetric chest wall rise - Respiratory Respiratory exam: Present: normal lung sounds bilaterally. Absent: respiratory distress - Cardiovascular Cardiovascular exam: Present: regular rate, normal rhythm - Abdominal Exam Abdominal exam: Present: soft, Non-Tender, normal bowel sounds. Absent: distention, guarding, rebound, rigidity - Extremities Exam Extremities exam: Present: tenderness, normal capillary refill, other (Right hand pitting edema 1+. Puncture landon observed on dorsal and ventral right wrist. Dorsal puncture landon is erythematous with serosanguinous drainage. Swelling and tenderness over right dorsal wrist. No fluctuance. Right wrist ROM limited with supination due to pain. Elbow flexion and extension full and intact. Right hand construction safety consultant strength 4/5 due to pain. Neurovascularly intact. ). Absent: full ROM, pedal edema, joint swelling - Neurological Exam Neurological exam: Present: alert, oriented X3 - Psychiatric Psychiatric exam: Present: normal affect, normal mood - Skin Skin exam: Present: warm, dry, intact, normal color Course Course Narrative: 48 year old female presents for increased swelling and pain after cat bite to right wrist 4 days ago. Pain exacerbated by ROM that causes pulling sensation in forearm. Failed outpatient augmentin therapy. Patient is alert and oriented. Patient is tachycardic and tachypneic. Patient is not in any acute distress. On exam, right wrist and hand are swollen without erythema. Wrist ROM is limited with supination secondary to pain. There is tenderness to palpation. No fluctuance. There is a puncture landon on dorsal wrist that is open and erythematous with serosanguinous drainage. Patient meets SIRS criteria with source of infection. Will check CBC/BMP. Will start patient on Unasyn. Hospita list recommended admitting to Ortho service due to concern for sheath tendinitis. Ortho was paged. - Reevaluation(s) Reevaluation #1: CBC and BMP are unremarkable. Orthopedic Surgeon Dr. Romero agrees to serve as consult. Dr. Romero requests patient be admitted to hospitalist service. Hospitalist agrees to admit patient. Will order CRP/ESR and CT right UE with contrast, per Ortho. Ortho will followup on CT results. Hospitalist will follow lab results. Time: 14:45 Vital Signs Temperature 98.5 F 07/14/18 12:52 Pulse Rate 102 07/14/18 12:52 Respiratory Rate 22 07/14/18 12:52 Blood Pressure 120/76 07/14/18 12:52 O2 Sat by Pulse Oximetry 93 07/14/18 12:52 Temperature 98.5 F 07/14/18 13:23 Pulse Rate 102 07/14/18 13:23 Respiratory Rate 22 07/14/18 13:23 Blood Pressure 120/76 07/14/18 13:23 O2 Sat by Pulse Oximetry 93 07/14/18 13:23 Oxygen Delivery Oxygen Delivery Room Air Animal Bite - Medical Records Medical records reviewed: Yes I reviewed the patient's medical records. - Lab Data Lab results reviewed: Yes I reviewed the patient's lab results.
[2018-07-14] MEDS ORDERED: Ampicillin/Sulbactam 3,000 MG in 0.9 % Sodium Chloride Mini Bag 100 ML IVPB ONE (13:39)
--- NOTE | 2018-07-14 14:02 | Emergency Department Note ---
Disposition Clinical Impression: Cat bite Qualifiers: Encounter type: initial encounter Qualified Code(s): W55.01XA - Bitten by cat, initial encounter Disposition: Admitted As Inpatient Referrals: Kiley Freeman CNP [Primary Care Provider] - Forms: ED Satisfaction Letter General Adult HPI - General Chief complaint: ED Animal Bite Stated complaint: cat bite Time Seen by Provider: 07/14/18 13:12 Source: patient Limitations: no limitations - History of Present Illness Pain Scale: 3 - Related Data Home Medications Medication Instructions Recorded Confirmed ALPRAZolam [Xanax 1 MG Tablet] 1 mg PO TID PRN 02/01/18 02/01/18 Amoxicillin/Clavulanate [Augmentin] 875 mg PO BIDWM 02/01/18 02/01/18 Aspirin 81 mg PO DAILY 02/01/18 02/01/18 Atorvastatin Calcium [Lipitor] 20 mg PO HS 02/01/18 02/01/18 Cyclobenzaprine [Flexeril] 10 mg PO HS 02/01/18 02/01/18 Duloxetine HCl [Cymbalta] 60 mg PO DAILY 02/01/18 02/01/18 Fluticasone Propionate Nasal 1 spr NS DAILY PRN 02/01/18 02/01/18 [Flonase] Furosemide [Lasix] 20 mg PO DAILY PRN 02/01/18 02/01/18 Gabapentin [Neurontin] 600 mg PO QID 02/01/18 02/01/18 Hyoscyamine SL [Levsin SL] 0.125 mg SL TID 02/01/18 02/01/18 Mometasone/Formoterol [Dulera 200 2 puff IH BID 02/01/18 02/01/18 Mcg/5 Mcg Inhaler] Montelukast [Singulair] 10 mg PO HS 02/01/18 02/01/18 Omeprazole [PriLOSEC] 40 mg PO DAILY 02/01/18 02/01/18 Oxycodone HCl 15 mg PO 5XD 02/01/18 02/01/18 Potassium Chloride [K-Tab ER] 10 meq PO DAILY 02/01/18 02/01/18 Tiotropium [place] [Spiriva 2 puff IH DAILY 02/01/18 02/01/18 Respimat] Trazodone HCl 100 mg PO HS 02/01/18 02/01/18 Previous Rx's Medication Instructions Recorded Amoxicillin/Clavulanate [Augmentin] 875 mg PO BID #20 tablet 07/10/18 Allergies Allergy/AdvReac Type Severity Reaction Status Date / Time hydrocodone [From Vicodin] Allergy Rash Verified 07/10/18 15:35 Sulfa (Sulfonamide Allergy Swelling Verified 07/10/18 15:35 Antibiotics) of Lip/Tongue/Throat Buspirone [From BuSpar] AdvReac Difficulty Verified 07/10/18 15:35 Breathing cefdinir AdvReac Diarrhea Verified 07/10/18 15:35 clindamycin AdvReac Hives Verified 07/10/18 15:35 Past Medical History - Past Medical History Medical history: Reports: non-contributory Surgical history: Reports: appendectomy, cholecystectomy, hysterectomy, other Psychiatric history: Reports: anxiety, depression - Social History Smoking Status: Current every day smoker Smokeless Tobacco Status: No Alcohol use: Reports: none Drug use: Reports: none Physical Exam - General Limitations: no limitations General appearance: alert, in no apparent distress Course Vital Signs Temperature 98.5 F 07/14/18 12:52 Pulse Rate 102 07/14/18 12:52 Respiratory Rate 22 07/14/18 12:52 Blood Pressure 120/76 07/14/18 12:52 O2 Sat by Pulse Oximetry 93 07/14/18 12:52 Temperature 98.5 F 07/14/18 13:23 Pulse Rate 102 07/14/18 13:23 Respiratory Rate 22 07/14/18 13:23 Blood Pressure 120/76 07/14/18 13:23 O2 Sat by Pulse Oximetry 93 07/14/18 13:23 Oxygen Delivery Oxygen Delivery Room Air Attestation Statement - Attestation Attestation: I examined this patient and my medical decision-making was reviewed with the INTERNAL AUDIT MANAGER/PA/Advanced Practice Nurse/Resident Physician. I agree with the documented findings, disposition and treatment plan as described except to the extent set forth below. Patient was bitten by a cat and then went to an urgent care 2 days ago was placed on Augmentin and she has failed outpatient therapy with significant erythema, pain with range of motion of the wrist and concern would be for a tendon sheath or deep tissue infection. I do not palpate any crepitus. No fluctuant areas evidence. Patient is started on IV Unasyn, labs, orthopedics is paged [phone] I did speak with the orthopedist Dr. Romero who accepts the patient in consultation like the patient minutes the hospitalist. He is comfortable with Unasyn as the antibiotic and the patient did receive 3 g. He also does request a IV contrast CT scan of the right hand and wrist and we will order that as well as he requests a CRP and ESR level 1432 Patient's labs are pending, the hospitalist has accepted the patient for admission 2200
[2018-07-14 14:44] LABS: BUN/Creatinine Ratio 13 (6-26); Basophils # 0.1 K/mcL (0.0-0.2); Basophils % 0.6 %; Blood Urea Nitrogen 7 mg/dL (6-20); Calcium 8.8 mg/dL (8.6-10.3); Carbon Dioxide 29 mEq/L (23-29); Chloride 103 mEq/L (98-107); Eosinophils # 0.2 K/mcL (0.0-0.6); Eosinophils % 2.1 %; Glucose 88 mg/dL (70-105); Hematocrit 37.8 % (35.3-44.9); Hemoglobin 11.8 g/dL (11.5-15.4); Immature Granulocytes % 0.3 % (0-4); Lymphocytes # 4.8 K/mcL (0.6-4.6); Lymphocytes % 43.3 %; Mean Corpuscular HGB Conc 31.2 g/dL (31.6-35.5); Mean Corpuscular Volume 92.9 fL (83.0-100.0); Mean Platelet Volume 9.8 fL (9.4-12.4); Monocytes # 0.7 K/mcL (0.0-1.3); Monocytes % 6.6 %; Neutrophils # 5.2 K/mcL (1.6-8.9); Osmolality,Calculated 283 (280-300); Platelet Count 242 K/mcL (140-400); Potassium 4.1 mEq/L (3.5-5.1); Red Blood Count 4.07 M/mcL (3.82-4.97); Red Cell Distribution Width 13.4 % (11.5-14.5); Segmented Neutrophils % 47.1 %; Sodium 138 mEq/L (136-145); eGFR For Non-African Americans > 60 (> 60)
[2018-07-14] MEDS ORDERED: Isovue-370 500 ML INFUS..BTL IV ONE (14:45)
[2018-07-14 14:58] LABS: C-Reactive Protein 78 mg/L (Less than 10)
[2018-07-14] MEDS ORDERED: Naloxone 0.4 MG/ML INJ IVP PRN (15:40)
[2018-07-14] MEDS ORDERED: Fluticasone Propionate Nasal 50 MCG/SPRAY BOTTLE NS PRN (15:41)
[2018-07-14] MEDS ORDERED: Furosemide 20 MG TABLET PO PRN (15:41)
[2018-07-14] MEDS ORDERED: *HR* OxyCODONE Immed Rel 15 MG TABLET PO SCH ×2 (15:45→23:00)
--- NOTE | 2018-07-14 16:16 | Internal Med History&Physical ---
Date of Encounter: 07/14/18 Time of Encounter: 16:14 Internal Medicine - H&P: HPI Chief complaint: cat bite Admitted From: Home Plans for Post Hospital Care: Home History of present illness: Ms. Stratton is a 48 year old female with PMH of Anxiety, HTN, GERD, Morbid Obesity who sustained a cat bite while trying to pet a stray rene 4 days ago,she was initially on Augmentin as outpatient but her hand continues to be painful and red, as well as worsening pain with movement, she denies fever or chills, she has no n/v/d, she has no abdominal symptoms, she has no CP/SOB/ankle edema She has no or GI symptoms and no neurologic symptoms Her chronic medical conditions are stable Last tetanus shot about 3-4 yeas ago She was started on Unasyn in the ER , Ortho consulted and recommended extremity CT scan with contrast which showed diffuse dorsal subcutaneous edema suspicious for cellulitis as well as suspected tenosynovitis of the first dorsal extensor compartment tendons likely infectious. Patient is afebrile, she has no leukocytosis , chemistries unremarkable, CRP 17, ESR 83. She is admitted as inpatient for management of right hand cellulitis secondary to cat bite with failure of outpatient therapy. Orthopedics will be seen in consult. Past Med Surg Social Fam HX - Past Medical History Medical history: GERD Additional medical history: bronchitis, neuropathy, ibs, chronic pain, anemia, RLS. Anemia. Depression. vocal cord dysfunction. diverticulosis. neuropathy of feet. Hemorrhoid./rectal bleeding. RAD. right breast mass. anxiety. DDD, lumbar. Exacerbation of reactive airway dx Psychiatric history: anxiety, depression - Past Surgical History Surgical History: appendectomy, cholecystectomy, hysterectomy, other Additional surgical history: tarsal tunnel, tubal, uterine ablation, saphenous vein ablation right leg. Hysterectomy - Social History Smoking Status: Current every day smoker Smokeless Tobacco Status: No Alcohol use: none Drug use: none - Family History Mother Living Status: Still Living Hx Family Cardiac Disorders: Yes ([place]) Internal Medicine - H&P: Meds ALPRAZolam [Xanax 1 MG Tablet] 1 mg PO TID PRN 02/01/18 [History] Aspirin 81 mg PO DAILY 02/01/18 [History] Atorvastatin Calcium [Lipitor] 20 mg PO HS 02/01/18 [History] Cyclobenzaprine [Flexeril] 10 mg PO HS 02/01/18 [History] Duloxetine HCl [Cymbalta] 60 mg PO DAILY 02/01/18 [History] Fluticasone Propionate Nasal [Flonase] 1 spr NS DAILY PRN 02/01/18 [History] Furosemide [Lasix] 20 mg PO DAILY PRN 02/01/18 [History] Gabapentin [Neurontin] 600 mg PO QID 02/01/18 [History] Mometasone/Formoterol [Dulera 200 Mcg/5 Mcg Inhaler] 2 puff IH BID 02/01/18 [History] Montelukast [Singulair] 10 mg PO HS 02/01/18 [History] Omeprazole [PriLOSEC] 40 mg PO DAILY 02/01/18 [History] Oxycodone HCl 15 mg PO 5XD 02/01/18 [History] Potassium Chloride [K-Tab ER] 10 meq PO DAILY 02/01/18 [History] Tiotropium [place] [Spiriva Respimat] 2 puff IH DAILY 02/01/18 [History] Trazodone HCl 100 mg PO HS 02/01/18 [History] Amoxicillin/Clavulanate [Augmentin] 875 mg PO BID #20 tablet 07/10/18 [Rx] Allergy/AdvReac Type Severity Reaction Status Date / Time hydrocodone [From Vicodin] Allergy Rash Verified 07/10/18 15:35 Sulfa (Sulfonamide Allergy Swelling Verified 07/10/18 15:35 Antibiotics) of Lip/Tongue/Throat Buspirone [From BuSpar] AdvReac Difficulty Verified 07/10/18 15:35 Breathing cefdinir AdvReac Diarrhea Verified 07/10/18 15:35 clindamycin AdvReac Hives Verified 07/10/18 15:35 All Systems PM: A 10-system review of systems was performed and is negative for pertinent findings except as documented above in the HPI. - Constitutional Constitutional: no chills, no fever(s), no night sweats - EENT Eyes: no change in vision, no discharge, no pain, no photophobia Ears: no ear discharge, no ear pain, no tinnitus Nose, mouth and throat: no dysphagia, no nasal discharge, no neck pain, no sore throat - Cardiovascular Cardiovascular ROS IM: no chest pain, no diaphoresis, no dyspnea, no lightheadedness, no palpitations, no syncope - Respiratory Respiratory: no cough, no dyspnea, no wheezing, no excessive phlegm production - Gastrointestinal Gastrointestinal: no abdominal pain, no diarrhea, no hematemesis, no hematochezia, no melena, no nausea, no vomiting - Genitourinary Genitourinary: no change in urinary stream, no dysuria, no flank pain, no hematuria - Musculoskeletal Musculoskeletal ROS IM: as per HPI - Integumentary Integumentary IM: as per HPI - Neurological Neurological ROS: no confusion, no convulsions, no focal weakness, no numbness, no tingling, no tremor(s) - Hematologic/Lymphatic Hematologic/Lymphatic: no easy bruising - Constitutional Vitals: Temp Pulse Resp BP Pulse Ox 98.5 F 81 15 126/79 93 07/14/18 13:23 07/14/18 15:57 07/14/18 15:57 07/14/18 15:57 07/14/18 13:23 General appearance: Present: A&O X 3, morbidly obese, pleasant, no acute distress Exam: see below - Head Head exam: Present: atraumatic, normocephalic - Eye Eye exam: Present: PERRL, conjuntiva pink, sclera anicteric Pupils: Present: PERRL - Neck Neck exam general surgery: Present: supple, trachea midline. Absent: lymphad enopathy - Respiratory Respiratory exam: Present: CTAB. Absent: accessory muscle use, rales, rhonchi, wheezes - Cardiovascular Cardiovascular exam: Present: RRR, +S1, +S2. Absent: diastolic murmur, gallop, rubs, systolic murmur - GI/Abdominal GI/Abdominal exam: Present: normal bowel sounds, soft, no peritoneal signs. Absent: distended, tenderness - Extremities Exam Extremities exam: Absent: pedal edema Additional comments: Right wrist with mild tenderness, swelling and erythema, normal capillary refill, two puncture daley ,one on each flexor and extensor surface with very minimal serosanguinous fluid, no palpable abscesses, no induration, no flutucance. '' - Neurological Exam Neurological exam: Present: alert, CN II-XII intact, oriented X3, no focal deficits. Absent: pronater drift, facial droop, speech deficit - Skin Skin exam: Present: dry, intact Internal Med - H&P Results - Labs CBC & Chem 7: 07/14/18 14:04 07/14/18 14:04 Labs: Short CBC 07/14/18 Range/Units 14:04 WBC 11.1 (4.3-11.1) K/mcL Hgb 11.8 (11.5-15.4) g/dL Hct 37.8 (35.3-44.9) % Plt Count 242 (140-400) K/mcL Neutrophils # 5.2 (1.6-8.9) K/mcL BMP 07/14/18 14:04 Sodium 138 Potassium 4.1 Chloride 103 Carbon Dioxide 29 BUN 7 Creatinine 0.53 L Glucose 88 Calcium 8.8 - Impressions ITS Impressions Upper Extremity CT 07/14/18 14:45 IMPRESSION: 1. Diffuse dorsal subcutaneous edema, consider cellulitis. 2. Suspected tenosynovitis of the 1st dorsal extensor compartment tendons, possibly infectious. Consider MR imaging if there is concern for tendon disruption. D/ / Kt Gamez MD / Kt Gamez MD Interpreting Provider: Kt Gamez MD - Assessment and plan (1) Cellulitis Current Visit: Yes Status: Acute Assessment and plan: Patient is not septic Failed outpatient therapy with augmentin No abscess collection on CT scan However, patient has tenosynovitis, ortho following Start patient on Unasyn 3g q6h Obtain wound culture Add doxycycline 100mg q12hr, low suspicion for MRSA Continue to monitor Qualifiers: Site of cellulitis: extremity Site of cellulitis of extremity: upper extremity Laterality: right Qualified Code(s): L03.113 - Cellulitis of right upper limb (2) Cat bite Current Visit: Yes Status: Acute Assessment and plan: as in cellulitis give TT Qualifiers: Encounter type: initial encounter Qualified Code(s): W55.01XA - Bitten by cat, initial encounter (3) Tenosynovitis Current Visit: Yes Status: Acute Assessment and plan: as in cellulitis R hand CT noted, ortho is seeing in consult, will follow recommendations (4) Anxiety Current Visit: Yes Status: Chronic Assessment and plan: resume and continue home meds (5) Asthma Current Visit: Yes Status: Chronic Assessment and plan: continue home meds Qualifiers: Asthma severity: mild Asthma persistence: unspecified Asthma complication type: uncomplicated Qualified Code(s): J45.909 - Unspecified asthma, uncomplicated (6) Chronic obstructive pulmonary disease without exacerbation Current Visit: Yes Status: Chronic Assessment and plan: not in exacerbation Continue home meds (7) Morbid obesity Current Visit: Yes Status: Chronic Assessment and plan: lifestyle modification (8) Tobacco use disorder Current Visit: Yes Status: Chronic Assessment and plan: encourage cessation - Time Spent With Patient Total time spent is greater than 50% in coordination of care (as documented) at patient's floor/unit and/or counseling patient:
[2018-07-14] MEDS ORDERED: Td (TENIVAC) Vaccine 0.5 ML VIAL IM ONE (16:49)
[2018-07-14] MEDS: Gabapentin 300 MG CAPSULE PO SCH ×2 (17:08→21:00)
--- NOTE | 2018-07-14 17:31 | Orthopedic Consult Note ---
Date of Encounter: 07/14/18 Time of Encounter: 17:29 Assessment and Plan (1) Cellulitis Current Visit: Yes Status: Acute This patient has cellulitis of the right wrist radially over the first dorsal compartment after being bitten by a cat. Labs are noted. She was started on Unasyn. My recommendation is observation overnight and if no significant imp rovement we will recommend operative incision, drainage, irrigation, and debridement in the operating room. I did recommend elevation and motion exercises to reduce the risk of stiffness. At the need or drink after midnight is to go to the operating room. Qualifiers: Site of cellulitis: extremity Site of cellulitis of extremity: upper extre mity Laterality: right Qualified Code(s): L03.113 - Cellulitis of right upper limb History of Present Illness HPI: Ms. Stratton is a 48 year old female who is currently admitted to the hospitalist due to cellulitis the right wrist. 4 days ago she was bitten by a stray cat and had worsening redness, pain, and swelling. She was admitted and started on Unasyn and I was consulted to assist in the evaluation and management. On my evaluation she complains of isolated pain localized to the radial aspect of the right wrist, worse with any use and movement and better with rest. She denies any numbness, tingling, or any other associated signs or symptoms or modifying factors. She currently denies any feelings of illness. Past Med Surg Social Fam HX - Past Medical History Medical history: GERD Additional medical history: bronchitis, neuropathy, ibs, chronic pain, anemia, RLS. Anemia. Depression. vocal cord dysfunction. diverticulosis. neuropathy of feet. Hemorrhoid./rectal bleeding. RAD. right breast mass. anxiety. DDD, lumbar. Exacerbation of reactive airway dx Psychiatric history: anxiety, depression - Past Surgical History Surgical History: appendectomy, cholecystectomy, hysterectomy, other Additional surgical history: tarsal tunnel, tubal, uterine ablation, saphenous vein ablation right leg. Hysterectomy - Social History Smoking Status: Current every day smoker Smokeless Tobacco Status: No Alcohol use: none Drug use: none - Family History Mother Living Status: Still Living Hx Family Cardiac Disorders: Yes ([place]) Medications and Allergies ALPRAZolam [Xanax 1 MG Tablet] 1 mg PO TID PRN 02/01/18 [History] Aspirin 81 mg PO DAILY 02/01/18 [History] Atorvastatin Calcium [Lipitor] 20 mg PO HS 02/01/18 [History] Cyclobenzaprine [Flexeril] 10 mg PO HS 02/01/18 [History] Duloxetine HCl [Cymbalta] 60 mg PO DAILY 02/01/18 [History] Fluticasone Propionate Nasal [Flonase] 1 spr NS DAILY PRN 02/01/18 [History] Furosemide [Lasix] 20 mg PO DAILY PRN 02/01/18 [History] Gabapentin [Neurontin] 600 mg PO QID 02/01/18 [History] Mometasone/Formoterol [Dulera 200 Mcg/5 Mcg Inhaler] 2 puff IH BID 02/01/18 [History] Montelukast [Singulair] 10 mg PO HS 02/01/18 [History] Omeprazole [PriLOSEC] 40 mg PO DAILY 02/01/18 [History] Oxycodone HCl 15 mg PO 5XD 02/01/18 [History] Potassium Chloride [K-Tab ER] 10 meq PO DAILY 02/01/18 [History] Tiotropium [place] [Spiriva Respimat] 2 puff IH DAILY 02/01/18 [History] Trazodone HCl 100 mg PO HS 02/01/18 [History] Amoxicillin/Clavulanate [Augmentin] 875 mg PO BID #20 tablet 07/10/18 [Rx] Allergy/AdvReac Type Severity Reaction Status Date / Time hydrocodone [From Vicodin] Allergy Rash Verified 07/10/18 15:35 Sulfa (Sulfonamide Allergy Swelling Verified 07/10/18 15:35 Antibiotics) of Lip/Tongue/Throat Buspirone [From BuSpar] AdvReac Difficulty Verified 07/10/18 15:35 Breathing cefdinir AdvReac Diarrhea Verified 07/10/18 15:35 clindamycin AdvReac Hives Verified 07/10/18 15:35 All Systems Reviewed: Constitutional and musculoskeletal systems were reviewed and are negative unless otherwise stated in history of present illness. Physical Exam - Constitutional Vitals: Temp Pulse Resp BP Pulse Ox 98.0 F 71 16 124/85 92 07/14/18 16:19 07/14/18 16:19 07/14/18 16:19 07/14/18 16:19 07/14/18 16:19 CONSTITUTIONAL -Vitals reviewed -The patient is well developed, well nourished, well groomed PSYCHIATRIC -Fully alert and oriented -Pleasant mood RIGHT UPPER EXTREMITY Inspection shows that the skin and the soft tissue envelope are intact. On the radial side of the wrist over the first dorsal compartment there is redness and erythema associated with warmth and tenderness. Measures about 4-5 cm in diameter. Keira's is moderately positive. She is able to grossly flex and extend the digits including the thumb and circumduct the thumb without significant pain. The patient demonstrates 4+ out of 5 strength regarding elbow flexion and extension, wrist flexion and extension, and estimating manager. The patient can actively flex and extend all digits, extend the thumb, cross the index and long fingers, make an okay sign, and oppose the thumb. The fingertips are all grossly sensate and well-perfused, and the radial artery pulse is 2+. Diagnostic Imaging: I did personally review and interpret the prior wrist and hand x-rays obtained previously as well as a CT scan of the right wrist obtained today which shows diffuse soft tissue swelling and tenosynovitis of the first dorsal compartment. Results - Labs Result Diagrams: 07/14/18 14:04 07/14/18 14:04 Labs: Abnormal lab results MCHC 31.2 g/dL (31.6-35.5) L 07/14/18 14:04 Lymphocytes # 4.8 K/mcL (0.6-4.6) H 07/14/18 14:04 ESR 83 mm/hr (0-15) H 07/14/18 14:14 Creatinine 0.53 mg/dL (0.60-1.20) L 07/14/18 14:04 C-Reactive Protein 78 mg/L (Less than 10) H 07/14/18 14:04 H & H 07/14/18 Range/Units 14:04 Hgb 11.8 (11.5-15.4) g/dL Hct 37.8 (35.3-44.9) % All other labs normal. Consult Discharge Plan - Plan Referrals: Kiley Freeman, RACHNA [Primary Care Provider] -
[2018-07-14] MEDS: Doxycycline 100 MG in 0.9 % Sodium Chloride Mini Bag 100 ML IVPB SCH (17:52)
[2018-07-14] MEDS ORDERED: Ampicillin/Sulbactam 3,000 MG in 0.9 % Sodium Chloride Mini Bag 100 ML IVPB SCH (19:00)
[2018-07-14] MEDS ORDERED: Ampicillin/Sulbactam 1,500 MG in 0.9 % Sodium Chloride Mini Bag 100 ML IVPB SCH (19:00)
--- NOTE | 2018-07-14 20:17 | Anesthesia Evaluation PreOp ---
Date of Encounter: 07/14/18 Time of Encounter: 20:05 - Past History Planned Operation: Incision Drainage Rt Wrist Cardiac History: Other (Anemia) Pulmonary History: Asthma, Other (Vocal Cord Dysfunction) OVEN DAUBER History: Other (RLS) Other Medical History: Other (Morbid Obese IBS Anxiety Depression) Anesthesia History: No Prior Anesthetic Complications, Past Anesthesia (Hyste rectomy) : No ([place]) Alcohol Use: none Drug use: none Medications and Allergies ALPRAZolam [Xanax 1 MG Tablet] 1 mg PO TID PRN 02/01/18 [History] Aspirin 81 mg PO DAILY 02/01/18 [History] Atorvastatin Calcium [Lipitor] 20 mg PO HS 02/01/18 [History] Cyclobenzaprine [Flexeril] 10 mg PO HS 02/01/18 [History] Duloxetine HCl [Cymbalta] 60 mg PO DAILY 02/01/18 [History] Fluticasone Propionate Nasal [Flonase] 1 spr NS DAILY PRN 02/01/18 [History] Furosemide [Lasix] 20 mg PO DAILY PRN 02/01/18 [History] Gabapentin [Neurontin] 600 mg PO QID 02/01/18 [History] Mometasone/Formoterol [Dulera 200 Mcg/5 Mcg Inhaler] 2 puff IH BID 02/01/18 [History] Montelukast [Singulair] 10 mg PO HS 02/01/18 [History] Omeprazole [PriLOSEC] 40 mg PO DAILY 02/01/18 [History] Oxycodone HCl 15 mg PO 5XD 02/01/18 [History] Potassium Chloride [K-Tab ER] 10 meq PO DAILY 02/01/18 [History] Tiotropium [place] [Spiriva Respimat] 2 puff IH DAILY 02/01/18 [History] Trazodone HCl 100 mg PO HS 02/01/18 [History] Amoxicillin/Clavulanate [Augmentin] 875 mg PO BID #20 tablet 07/10/18 [Rx] Allergy/AdvReac Type Severity Reaction Status Date / Time hydrocodone [From Vicodin] Allergy Rash Verified 07/10/18 15:35 Sulfa (Sulfonamide Allergy Swelling Verified 07/10/18 15:35 Antibiotics) of Lip/Tongue/Throat Buspirone [From BuSpar] AdvReac Difficulty Verified 07/10/18 15:35 Breathing cefdinir AdvReac Diarrhea Verified 07/10/18 15:35 clindamycin AdvReac Hives Verified 07/10/18 15:35 - Meds/Allergy Pre-op Review Medications Reviewed: Yes Allergies Reviewed: Yes Beta Blockers on Current Med List: No Anesthesia Results - Labs 07/14/18 14:04 07/14/18 14:04 - Imaging EKG: report reviewed (Sinus Tach) Additional studies: ECHO 2017 EF 65% Anesthesia Exam O2 Sat Height 1.57 m Height 1.57 m Weight 107.955 kg Weight 107.955 kg O2 Sat by Pulse Oximetry 91 O2 Sat by Pulse Oximetry 92 O2 Sat by Pulse Oximetry 93 O2 Sat by Pulse Oximetry 93 Vital Signs Temp Pulse Resp BP Pulse Ox 98.5 F 102 22 120/76 93 07/14/18 12:52 07/14/18 12:52 07/14/18 12:52 07/14/18 12:52 07/14/18 12:52 Height: 5'2 Weight: 238 lbs NPO (# of Hours): MN Pain Scale: 1 - HEENT Pupil (Motor): Pupils equal, EOMI Mallampati: III Teeth: Normal Oral Opening: Less than or equal to 3 (Able to phonate normally) - OVEN DAUBER LOC: Oriented OVEN DAUBER Motor: Normal RUE, Normal LUE, Normal RLE, Normal LLE, Normal Face OVEN DAUBER Sensory: Normal: RUE, LUE, RLE, LLE, Face - Cardiac Rhythm: Regular Murmur: None JVD: No Carotid Bruit: No - Pulmonary Breath Sounds: bilateral Clear Respiratory Effort: Symmetrical Anesthesia Assess/Plan ASA Score: 3 ([place] IBS Anxiety Depression) Anesthetic Plan: General Monitoring Plan: Standard Monitors Recovery Plan: PACU (Discussed GA)
[2018-07-14] MEDS: *HR* OxyCODONE Immed Rel 15 MG TABLET PO SCH (21:00)
[2018-07-14] MEDS: traZODone 50 MG TABLET PO SCH (21:00)
[2018-07-14] MEDS: Ampicillin/Sulbactam 3,000 MG in 0.9 % Sodium Chloride Mini Bag 100 ML IVPB SCH (21:01)
[2018-07-14] MEDS: Budesonide/Formoterol 160/4.5 1 PUFF INH IH SCH (23:31)
[2018-07-15] MEDS: *HR* OxyCODONE Immed Rel 15 MG TABLET PO SCH ×5 (00:57→20:07)
[2018-07-15] MEDS: Ampicillin/Sulbactam 3,000 MG in 0.9 % Sodium Chloride Mini Bag 100 ML IVPB SCH ×3 (03:48→18:14)
[2018-07-15] MEDS: Acetaminophen 325 MG TABLET PO PRN (03:59)
[2018-07-15 04:58] LABS: Basophils % 0.4 %; Eosinophils # 0.3 K/mcL (0.0-0.6); Eosinophils % 2.6 %; Hematocrit 35.5 % (35.3-44.9); Hemoglobin 10.9 g/dL (11.5-15.4); Immature Granulocytes % 0.3 % (0-4); Lymphocytes # 4.3 K/mcL (0.6-4.6); Lymphocytes % 44.5 %; Mean Corpuscular HGB Conc 30.7 g/dL (31.6-35.5); Mean Corpuscular Hemoglobin 28.5 pg (28.0-33.3); Mean Corpuscular Volume 92.9 fL (83.0-100.0); Mean Platelet Volume 9.6 fL (9.4-12.4); Monocytes # 0.7 K/mcL (0.0-1.3); Monocytes % 7.2 %; Neutrophils # 4.3 K/mcL (1.6-8.9); Platelet Count 238 K/mcL (140-400); Red Blood Count 3.82 M/mcL (3.82-4.97); Red Cell Distribution Width 13.4 % (11.5-14.5)
[2018-07-15 05:09] LABS: BUN/Creatinine Ratio 13 (6-26); Blood Urea Nitrogen 7 mg/dL (6-20); Calcium 8.5 mg/dL (8.6-10.3); Carbon Dioxide 27 mEq/L (23-29); Chloride 105 mEq/L (98-107); Glucose 103 mg/dL (70-105); Osmolality,Calculated 288 (280-300); Potassium 3.5 mEq/L (3.5-5.1); Sodium 140 mEq/L (136-145); eGFR For Non-African Americans > 60 (> 60)
[2018-07-15] MEDS: Doxycycline 100 MG in 0.9 % Sodium Chloride Mini Bag 100 ML IVPB SCH ×2 (05:29→19:05)
[2018-07-15] MEDS: Aspirin 81 MG TAB.CHEW PO SCH ×2 (07:17→17:33)
[2018-07-15] MEDS: Budesonide/Formoterol 160/4.5 1 PUFF INH IH SCH ×2 (07:39→19:53)
[2018-07-15] MEDS: Tiotropium 18 MCG inhalation IH SCH (07:39)
[2018-07-15] MEDS: Gabapentin 300 MG CAPSULE PO SCH ×4 (08:56→20:08)
--- NOTE | 2018-07-15 09:59 | Internal Med Progress Note ---
Hospitalist Progress Note - Encounter Date of Encounter: 07/15/18 Time of Encounter: 09:56 - Subjective Interval History: 48 F admitted on 07/14 for R hand cellulitis and tenosynovitis following a stray cat bite She was given Td shot 07/14 She has no fever She reports her R hand swelling and pain, as well as redness has significantly improved She is been seen and followed by ortho, plan for possible surgery/I and D today - Exam Vitals: Temp Pulse Resp BP Pulse Ox 98.2 F 77 18 102/66 95 07/15/18 06:31 07/15/18 08:59 07/15/18 07:41 07/15/18 08:59 07/15/18 07:41 Exam: Vitals stable, afebrile Gen: Morbidly obese, not in distress HEENT: Moist oral mucosa, not pale, anicteric Chest: Equl chest movt bilaterally Resp: Few scattered wheezing bilaterally Heart: S1, S2 only, no m/g/r Abdomen: Soft, not tender Extremities:Right wrist with mild tenderness, swelling and erythema, normal capillary refill, two puncture daely ,one on each flexor and extensor surface with very minimal serosanguinous fluid, no palpable abscesses, no induration, no flutucance. ' - Assessment and Plan (1) Cellulitis Current Visit: Yes Status: Acute Assessment and Plan: Patient is not septic Failed outpatient therapy with augmentin No abscess collection on CT scan However, patient has tenosynovitis, ortho following Continue Unasyn 3000 mg and doxycycline 100mg q12hr, low suspicion for MRSA Continue to monitor (2) Cat bite Current Visit: Yes Status: Acute Assessment and Plan: as in cellulitis Received TT 07/14 (3) Tenosynovitis Current Visit: Yes Status: Acute Assessment and Plan: as in cellulitis R hand CT noted, ortho is seeing in consult, will follow recommendations (4) Anxiety Current Visit: Yes Status: Chronic Assessment and Plan: continue home meds (5) Asthma Current Visit: Yes Status: Chronic Assessment and Plan: continue home meds (6) Chronic obstructive pulmonary disease without exacerbation Current Visit: Yes Status: Chronic Assessment and Plan: not in exacerbation Continue home meds (7) Morbid obesity Current Visit: Yes Status: Chronic Assessment and Plan: lifestyle modification (8) Tobacco use disorder Current Visit: Yes Status: Chronic Assessment and Plan: encourage cessation NRT 21mg daily - Time Spent with Patient Total time spent is greater than 50% in coordination of care (as documented) at patient's floor/unit and/or counseling patient: Plan of Care Discussed with: patient Internal Medicine: Result - Labs CBC & Chem 7: 07/15/18 04:36 07/15/18 04:36 Labs: Short CBC 07/14/18 07/15/18 Range/Units 14:04 04:36 WBC 11.1 9.6 (4.3-11.1) K/mcL Hgb 11.8 10.9 L (11.5-15.4) g/dL Hct 37.8 35.5 (35.3-44.9) % Plt Count 242 238 (140-400) K/mcL Neutrophils # 5.2 4.3 (1.6-8.9) K/mcL BMP 07/14/18 07/15/18 14:04 04:36 Sodium 138 140 Potassium 4.1 3.5 Chloride 103 105 Carbon Dioxide 29 27 BUN 7 7 Creatinine 0.53 L 0.54 L Glucose 88 103 Calcium 8.8 8.5 L - Impressions Impressions Upper Extremity CT 07/14/18 14:45 IMPRESSION: 1. Diffuse dorsal subcutaneous edema, consider cellulitis. 2. Suspected tenosynovitis of the 1st dorsal extensor compartment tendons, possibly infectious. Consider MR imaging if there is concern for tendon disruption. D/ / 07/14/2018 16:14:46 Kt Gamez MD / kalin Interpreting Provider: Kt Gamez MD Consult Discharge Plan - Plan Referrals: Kiley Freeman, [facility]INE [Primary Care Provider] - (1) Cellulitis Qualifiers: Site of cellulitis: extremity Site of cellulitis of extremity: upper extremity Laterality: right Qualified Code(s): L03.113 - Cellulitis of right upper limb (2) Cat bite Qualifiers: Encounter type: initial encounter Qualified Code(s): W55.01XA - Bitten by cat, initial encounter (5) Asthma Qualifiers: Asthma severity: mild Asthma persistence: unspecified Asthma complication type: uncomplicated Qualified Code(s): J45.909 - Unspecified asthma, uncomplicated
[2018-07-15] MEDS: Nicotine 21 MG PATCH.TD24 TD SCH (11:03)
--- NOTE | 2018-07-15 14:30 | Anesthesia Evaluation PreOp ---
Date of Encounter: 07/15/18 Time of Encounter: 14:28 - Past History Planned Operation: I&D Right Wrist Cardiac History: Other (Anemia) Pulmonary History: Asthma, Other (Vocal Cord Dysfunction) [employer] History: Denies Any Significant HX Other Medical History: Other (Morbid Obese BMI - 43.5IBS Anxiety Depression) Anesthesia History: No Prior Anesthetic Complications, Past Anesthesia (MUltiple) : No (KIM) Alcohol Use: none Drug use: none Medications and Allergies ALPRAZolam [Xanax 1 MG Tablet] 1 mg PO TID PRN 02/01/18 [History] Aspirin 81 mg PO DAILY 02/01/18 [History] Atorvastatin Calcium [Lipitor] 20 mg PO HS 02/01/18 [History] Cyclobenzaprine [Flexeril] 10 mg PO HS 02/01/18 [History] Duloxetine HCl [Cymbalta] 60 mg PO DAILY 02/01/18 [History] Fluticasone Propionate Nasal [Flonase] 1 spr NS DAILY PRN 02/01/18 [History] Furosemide [Lasix] 20 mg PO DAILY PRN 02/01/18 [History] Gabapentin [Neurontin] 600 mg PO QID 02/01/18 [History] Mometasone/Formoterol [Dulera 200 Mcg/5 Mcg Inhaler] 2 puff IH BID 02/01/18 [History] Montelukast [Singulair] 10 mg PO HS 02/01/18 [History] Omeprazole [PriLOSEC] 40 mg PO DAILY 02/01/18 [History] Oxycodone HCl 15 mg PO 5XD 02/01/18 [History] Potassium Chloride [K-Tab ER] 10 meq PO DAILY 02/01/18 [History] Tiotropium Pilot [Spiriva Respimat] 2 puff IH DAILY 02/01/18 [History] Trazodone HCl 100 mg PO HS 02/01/18 [History] Amoxicillin/Clavulanate [Augmentin] 875 mg PO BID #20 tablet 07/10/18 [Rx] Allergy/AdvReac Type Severity Reaction Status Date / Time hydrocodone [From Vicodin] Allergy Rash Verified 07/10/18 15:35 Sulfa (Sulfonamide Allergy Swelling Verified 07/10/18 15:35 Antibiotics) of Lip/Tongue/Throat Buspirone [From BuSpar] AdvReac Difficulty Verified 07/10/18 15:35 Breathing cefdinir AdvReac Diarrhea Verified 07/10/18 15:35 clindamycin AdvReac Hives Verified 07/10/18 15:35 - Meds/Allergy Pre-op Review Medications Reviewed: Yes Allergies Reviewed: Yes Beta Blockers on Current Med List: No Anesthesia Results - Labs 07/15/18 04:36 07/15/18 04:36 ECHO 2017 EF 65% - Imaging EKG: report reviewed (ST) Anesthesia Exam O2 Sat Weight 107.958 kg O2 Sat by Pulse Oximetry 91 O2 Sat by Pulse Oximetry 95 O2 Sat by Pulse Oximetry 96 O2 Sat by Pulse Oximetry 93 O2 Sat by Pulse Oximetry 90 O2 Sat by Pulse Oximetry 96 O2 Sat by Pulse Oximetry 91 O2 Sat by Pulse Oximetry 92 Vital Signs Temp Pulse Resp BP Pulse Ox 98.5 F 102 22 120/76 93 07/14/18 12:52 07/14/18 12:52 07/14/18 12:52 07/14/18 12:52 07/14/18 12:52 NPO (# of Hours): > 8 hrs Pain Scale: 0 Pain Scale Used: Numeric (1 - 10) - HEENT Pupil (Motor): Pupils equal, EOMI Mallampati: III Teeth: Normal Oral Opening: Greater than 3 - [employer] LOC: Oriented [employer] Motor: Normal RUE, Normal LUE, Normal RLE, Normal LLE, Normal Face [employer] Sensory: Normal: RUE, LUE, RLE, LLE, Face - Cardiac Rhythm: Regular Murmur: None JVD: No Carotid Bruit: No - Pulmonary Breath Sounds: bilateral Clear Respiratory Effort: Symmetrical Anesthesia Assess/Plan ASA Score: 3 Level of consciousness: Cooperative Anesthetic Plan: General Autologous Blood: Yes Monitoring Plan: Standard Monitors Recovery Plan: PACU
[2018-07-15] MEDS ORDERED: Lidocaine -MPF 2% 2 ML VIAL ONE (15:02)
[2018-07-15] MEDS ORDERED: *HR* FentaNYL (PF) 100 MCG/2 ML VIAL ONE (15:02)
[2018-07-15] MEDS ORDERED: *HR* Propofol 200 MG/20 ML VIAL IVP ONE (15:03)
[2018-07-15] MEDS ORDERED: *HR* Midazolam HCl 2 MG/2 ML VIAL ONE (15:03)
[2018-07-15] MEDS ORDERED: Bupivacaine/EPI 1:200k 0.5%PF 30 ML VIAL ONE (15:08)
[2018-07-15] MEDS ORDERED: *HR* HYDROmorphone (PF) 1 MG/ML SYRINGE IVP PRN (16:03)
[2018-07-15] MEDS ORDERED: *HR* OxyCODONE Immed Rel 5 MG TABLET PO PRN (16:03)
[2018-07-15] MEDS ORDERED: Nicotine 21 MG PATCH.TD24 TD ONE (17:07)
--- NOTE | 2018-07-15 17:47 | Orthopedic Operative Note ---
Date of procedure: 07/15/18 Procedure: OPERATIVE REPORT SURGEON: Kevin Miller MD PREOPERATIVE DIAGNOSIS: Right wrist abscess POSTOPERATIVE DIAGNOSIS: Right wrist abscess PROCEDURE: Incision, drainage, irrigation, and debridement of the right wrist abscess ANESTHESIA: Gen. anesthesia SPECIMENS: Aerobic and anaerobic culture swabs sent PREOPERATIVE NOTE The surgical plan was reviewed with the patient. The risks, benefits, alternatives, and potential complications of this procedure were discussed with the patient including injury to veins, arteries, nerves, tendons, ligaments, and bone. Also discussed were the risks of infection, bleeding, pain, blood clots, the possible need for a blood transfusion, the possible need for further procedures, heart attack, stroke, and . Additional risks include the need for further debridements. All of this was explained in simple terms, and the patient verbalized understanding and wished to proceed. Consent was given to proceed with surgery. PROCEDURE: The patient was seen in the preoperative holding area where the identify and the consent were confirmed. The right wrist was marked. Final questions were answered. The patient was brought back to the operating room and placed supine on the operating room table. A huddle was performed with the patient and all vital surgical team members confirming patient identity, the correct procedure, and the correct operative site. Gen. anesthesia was administered. The operative extremity was prepped and draped in the usual sterile fashion. A surgical time out was performed immediately preceding the incision with all personnel in the operating room to confirm patient identity, the correct operative site and extremity, correct radiographic studies, availability of appropriate surgical equipment, and agreement on the planned procedure. The tourniquet was inflated without exsanguination. A slightly oblique incision was made over the first dorsal compartment of the right wrist and dissection proceeded carefully through the subcutaneous tissue and immediately encountered was an abscess containing grossly purulent material which was swabbed for cultures and evacuated.the first dorsal compartment was identified and opened along the dorsal margin further decompressing purulence. The first dorsal comp artment tendons were intact. 3 L of saline were flushed through the wound. There is no necrotic material requiring debridement. The tourniquet was deflated and the wound was closed loosely with interrupted nylon stitches over a Radha drain. . The instrument, sponge, and needle counts were correct after wound closure. POST OPERATIVE PLAN: Continue IV antibiotics per the primary team, local wound care and pulled the drain on Rickie. Was there an operator assistant i cementing present: No Estimated blood loss (cc): 1
[2018-07-15] MEDS: ALPRAZolam 1 MG TABLET PO PRN (20:12)
[2018-07-15] MEDS: traZODone 50 MG TABLET PO SCH (20:12)
[2018-07-16] MEDS: *HR* OxyCODONE Immed Rel 15 MG TABLET PO SCH ×5 (00:50→19:31)
[2018-07-16] MEDS: Ampicillin/Sulbactam 3,000 MG in 0.9 % Sodium Chloride Mini Bag 100 ML IVPB SCH ×4 (00:50→17:26)
[2018-07-16] MEDS: *HR* Enoxaparin 40 MG/0.4 ML SYRINGE SQ SCH (05:18)
[2018-07-16] MEDS: Doxycycline 100 MG in 0.9 % Sodium Chloride Mini Bag 100 ML IVPB SCH ×2 (05:18→18:17)
--- NOTE | 2018-07-16 07:17 | Orthopedics Progress Note ---
Date of Encounter: 07/16/18 Time of Encounter: 07:17 Subjective Interval history: Patient was seen this morning doing well without complaints. Afebrile vital signs stable. Operative extremity: Neurovascularly intact Dressing clean dry and intact Calves nontender Assessment and plan: Continue with postoperative care Patient is recommended to stay for IV antibiotics, patient has mentioned leaving AGAINST MEDICAL ADVICE due to wanting to watch [place] [employer]. Objective Vital signs: Vital Signs Temp Pulse Resp BP Pulse Ox 07/16/18 03:35 98.0 F 96 16 110/68 90 07/16/18 00:09 98.0 F 92 16 106/67 92 07/15/18 19:56 16 93 07/15/18 19:12 98.0 F 107 16 124/76 92 07/15/18 19:02 98.5 F 109 16 136/85 92 07/15/18 18:14 99 F 108 18 108/68 93 07/15/18 17:41 99.1 F 104 17 157/76 93 07/15/18 16:40 98.9 F 90 18 134/84 94 07/15/18 16:24 98.8 F 90 18 130/79 95 07/15/18 16:14 90 18 134/75 94 07/15/18 16:04 89 18 133/82 95 07/15/18 15:54 98.7 F 104 18 109/80 94 07/15/18 10:39 98.1 F 83 18 100/65 91 07/15/18 08:59 77 102/66 07/15/18 07:41 18 95 Intake and Output 07/15/18 07/15/18 07/16/18 15:59 23:59 07:59 Intake Total 200 / 200 200 / 200 100 / 100 Output Total Balance 200 / 200 199 / 199 100 / 100 Intake: IV Fluids 200 / 200 200 / 200 100 / 100 Unasyn 3,000 MG In 0.9 % Sodium 100 / 100 100 / 100 100 / 100 Chloride (Mini-Bag +) 100 ML @ 200 mls/hr IVPB Q6H EDD Rx#: [id number] Doxycycline 100 MG In 0.9 % 100 / 100 100 / 100 Sodium Chloride (Mini-Bag +) 100 ML @ 100 mls/hr IVPB Q12HR EDD Rx#:[id number] Output: Estimated Blood Loss Other: # Voids 1 09 13 - Labs CBC & BMP: 07/15/18 04:36 07/15/18 04:36 Labs: Abnormal lab results Hgb 10.9 g/dL (11.5-15.4) L 07/15/18 04:36 MCHC 30.7 g/dL (31.6-35.5) L 07/15/18 04:36 ESR 83 mm/hr (0-15) H 07/14/18 14:14 Creatinine 0.54 mg/dL (0.60-1.20) L 07/15/18 04:36 Calcium 8.5 mg/dL (8.6-10.3) L 07/15/18 04:36 C-Reactive Protein 78 mg/L (Less than 10) H 07/14/18 14:04 Consult Discharge Plan - Plan Referrals: Kiley Freeman, [employer] [Primary Care Provider] -
[2018-07-16] MEDS ORDERED: Ipratropium/Albuterol Neb 3 ML IH PRN (09:05)
--- NOTE | 2018-07-16 09:06 | Internal Med Progress Note ---
Hospitalist Progress Note - Encounter Date of Encounter: 07/16/18 Time of Encounter: 09:05 - Subjective Interval History: 48 F admitted on 07/14 for R hand cellulitis and tenosynovitis following a stray cat bite She was given Td shot 07/14 She has no fever POD 1 s/o I and D of left hand No new complains - Exam Vitals: Temp Pulse Resp BP Pulse Ox 97.9 F 98 16 152/78 93 07/16/18 07:30 07/16/18 07:30 07/16/18 07:30 07/16/18 07:30 07/16/18 07:30 Exam: Vitals stable, afebrile Gen: Morbidly obese, not in distress HEENT: Moist oral mucosa, not pale, anicteric Chest: Equal chest movt bilaterally Resp: Few scattered wheezing bilaterally Heart: S1, S2 only, no m/g/r Abdomen: Soft, not tender Extremities:Right wrist in dressing, clean and dry, dressing not removed - Assessment and Plan (1) Cellulitis Current Visit: Yes Status: Acute Assessment and Plan: Patient is not septic Failed outpatient therapy with augmentin No abscess collection on CT scan However, patient has tenosynovitis, ortho following Continue Unasyn 3000 mg and doxycycline 100mg q12hr, low suspicion for MRSA-day 3 Continue to monitor (2) Cat bite Current Visit: Yes Status: Acute Assessment and Plan: as in cellulitis Received TT 07/14 (3) Tenosynovitis Current Visit: Yes Status: Acute Assessment and Plan: as in cellulitis R hand CT noted, ortho is seeing in consult, POD 1 s/p I and D Continue antibiotics, as in cellulitis Wound cultures sent , will follow sensitivity (4) Anxiety Current Visit: Yes Status: Chronic Assessment and Plan: continue home meds (5) Asthma Current Visit: Yes Status: Chronic Assessment and Plan: continue home meds Duonebs prn (6) Chronic obstructive pulmonary disease without exacerbation Current Visit: Yes Status: Chronic Assessment and Plan: not in exacerbation Continue home meds Duoneb prn (7) Morbid obesity Current Visit: Yes Status: Chronic Assessment and Plan: lifestyle modification (8) Tobacco use disorder Current Visit: Yes Status: Chronic Assessment and Plan: encourage cessation NRT 21mg daily DVT Prophylaxis: SQ heparin - Time Spent with Patient Total time spent is greater than 50% in coordination of care (as documented) at patient's floor/unit and/or counseling patient: Plan of Care Discussed with: patient Internal Medicine: Result - Labs CBC & Chem 7: 07/15/18 04:36 07/15/18 04:36 - Impressions Impressions Upper Extremity CT 07/14/18 14:45 IMPRESSION: 1. Diffuse dorsal subcutaneous edema, consider cellulitis. 2. Suspected tenosynovitis of the 1st dorsal extensor compartment tendons, possibly infectious. Consider MR imaging if there is concern for tendon disruption. D/ / 07/14/2018 16:14:46 Kt Gamez MD / kalin Interpreting Provider: Kt Gamez MD Consult Discharge Plan - Plan Referrals: Kiley Freeman, [employer] [Primary Care Provider] - (1) Cellulitis Qualifiers: Site of cellulitis: extremity Site of cellulitis of extremity: upper extremity Laterality: right Qualified Code(s): L03.113 - Cellulitis of right upper limb (2) Cat bite Qualifiers: Encounter type: initial encounter Qualified Code(s): W55.01XA - Bitten by cat, initial encounter (5) Asthma Qualifiers: Asthma severity: mild Asthma persistence: unspecified Asthma complication type: uncomplicated Qualified Code(s): J45.909 - Unspecified asthma, uncomplicated
[2018-07-16] MEDS: Acetaminophen 325 MG TABLET PO PRN (09:20)
[2018-07-16] MEDS: Gabapentin 300 MG CAPSULE PO SCH ×4 (09:20→21:46)
[2018-07-16] MEDS: Aspirin 81 MG TAB.CHEW PO SCH (09:21)
[2018-07-16] MEDS: Nicotine 21 MG PATCH.TD24 TD SCH (09:21)
[2018-07-16] MEDS: Tiotropium 18 MCG inhalation IH SCH (10:21)
[2018-07-16] MEDS: Budesonide/Formoterol 160/4.5 1 PUFF INH IH SCH ×2 (10:22→20:24)
[2018-07-16] MEDS: ALPRAZolam 1 MG TABLET PO PRN (15:51)
[2018-07-16] MEDS: traZODone 50 MG TABLET PO SCH (21:46)
[2018-07-17] MEDS: *HR* OxyCODONE Immed Rel 15 MG TABLET PO SCH ×4 (00:36→15:44)
[2018-07-17] MEDS: Ampicillin/Sulbactam 3,000 MG in 0.9 % Sodium Chloride Mini Bag 100 ML IVPB SCH ×3 (00:37→10:50)
[2018-07-17] MEDS: *HR* Enoxaparin 40 MG/0.4 ML SYRINGE SQ SCH (05:45)
[2018-07-17] MEDS: Doxycycline 100 MG in 0.9 % Sodium Chloride Mini Bag 100 ML IVPB SCH (06:22)
--- NOTE | 2018-07-17 06:30 | Orthopedics Progress Note ---
Date of Encounter: 07/17/18 Time of Encounter: 06:29 Subjective Interval history: Patient was seen this morning doing well without complaints. Afebrile vital signs stable. Operative extremity: Neurovascularly intact Dressing clean dry and intact Calves nontender Assessment and plan: Continue with postoperative care Culture pending Objective Vital signs: Vital Signs Temp Pulse Resp BP Pulse Ox 07/16/18 23:41 98.2 F 96 18 113/68 92 07/16/18 20:25 18 97 07/16/18 18:53 98.0 F 93 18 141/90 92 07/16/18 15:38 98.1 F 92 17 162/84 93 07/16/18 12:06 97.7 F 85 14 113/67 95 07/16/18 10:23 16 97 07/16/18 07:30 97.9 F 98 16 152/78 93 Intake and Output 07/16/18 07/16/18 07/17/18 15:59 23:59 06:59 Intake Total 100 / 100 600 / 600 100 / 100 Balance 100 / 100 600 / 600 100 / 100 Intake: IV Fluids 100 / 100 200 / 200 100 / 100 Unasyn 3,000 MG In 0.9 % Sodium 100 / 100 100 / 100 100 / 100 Chloride (Mini-Bag +) 100 ML @ 200 mls/hr IVPB Q6H EDD Rx#: [id number] Doxycycline 100 MG In 0.9 % 100 / 100 Sodium Chloride (Mini-Bag +) 100 ML @ 100 mls/hr IVPB Q12HR EDD Rx#:[id number] Oral 400 / 400 Other: # Voids 5 1 - Labs CBC & BMP: 07/15/18 04:36 07/15/18 04:36 Labs: Abnormal lab results Hgb 10.9 g/dL (11.5-15.4) L 07/15/18 04:36 MCHC 30.7 g/dL (31.6-35.5) L 07/15/18 04:36 ESR 83 mm/hr (0-15) H 07/14/18 14:14 Creatinine 0.54 mg/dL (0.60-1.20) L 07/15/18 04:36 Calcium 8.5 mg/dL (8.6-10.3) L 07/15/18 04:36 C-Reactive Protein 78 mg/L (Less than 10) H 07/14/18 14:04 Consult Discharge Plan - Plan Referrals: Kiley Freeman CNP [Primary Care Provider] -
[2018-07-17 07:01] LABS: Basophils % 0.2 %; Eosinophils # 0.3 K/mcL (0.0-0.6); Hematocrit 38.2 % (35.3-44.9); Hemoglobin 11.4 g/dL (11.5-15.4); Immature Granulocytes % 0.2 % (0-4); Lymphocytes # 4.6 K/mcL (0.6-4.6); Lymphocytes % 36.3 %; Mean Corpuscular HGB Conc 29.8 g/dL (31.6-35.5); Mean Corpuscular Hemoglobin 28.6 pg (28.0-33.3); Mean Platelet Volume 9.6 fL (9.4-12.4); Monocytes # 1.1 K/mcL (0.0-1.3); Monocytes % 8.3 %; Neutrophils # 6.7 K/mcL (1.6-8.9); Platelet Count 257 K/mcL (140-400); Red Blood Count 3.98 M/mcL (3.82-4.97); Red Cell Distribution Width 13.3 % (11.5-14.5)
[2018-07-17 07:21] LABS: BUN/Creatinine Ratio 16 (6-26); Blood Urea Nitrogen 10 mg/dL (6-20); Calcium 8.5 mg/dL (8.6-10.3); Carbon Dioxide 29 mEq/L (23-29); Chloride 109 mEq/L (98-107); Glucose 86 mg/dL (70-105); Osmolality,Calculated 294 (280-300); Potassium 3.8 mEq/L (3.5-5.1); Sodium 143 mEq/L (136-145); eGFR For Non-African Americans > 60 (> 60)
[2018-07-17] MEDS: Nicotine 21 MG PATCH.TD24 TD SCH (08:32)
[2018-07-17] MEDS: Aspirin 81 MG TAB.CHEW PO SCH (08:32)
[2018-07-17] MEDS: Gabapentin 300 MG CAPSULE PO SCH ×2 (08:32→12:12)
[2018-07-17] MEDS: Tiotropium 18 MCG inhalation IH SCH (10:45)
[2018-07-17] MEDS: Budesonide/Formoterol 160/4.5 1 PUFF INH IH SCH (10:46)
[2018-07-17] MEDS: ALPRAZolam 1 MG TABLET PO PRN (10:55)
--- NOTE | 2018-07-17 11:13 | Internal Med Progress Note ---
Hospitalist Progress Note - Encounter Date of Encounter: 07/17/18 Time of Encounter: 11:11 - Subjective Interval History: 48 F admitted on 07/14 for R hand cellulitis and tenosynovitis following a stray cat bite She was given Td shot 07/14 She has no fever POD 2 s/o I and D of R hand She developed multiple episodes of watery diarrhea overnight, and the patient complained of fatigue this mrn She also has a hx of IBS and reports this episodes of diarrhea are worse She has no abdominal pain, but has a new leukocytosis now We have sent stool for C.diff Will start a probiotic in the meantime Wound culture, prelim, no growth - Exam Vitals: Temp Pulse Resp BP Pulse Ox 97.9 F 102 18 115/73 93 07/17/18 06:41 07/17/18 06:41 07/17/18 06:41 07/17/18 06:41 07/17/18 06:41 Exam: Vitals stable, afebrile Gen: Morbidly obese, not in distress HEENT: Moist oral mucosa, not pale, anicteric Chest: Equal chest movt bilaterally Resp: Few scattered wheezing bilaterally Heart: S1, S2 only, no m/g/r Abdomen: Soft, not tender Extremities:Right wrist in dressing, clean and dry, dressing not removed - Assessment and Plan (1) Cellulitis Current Visit: Yes Status: Acute Assessment and Plan: Patient is not septic Failed outpatient therapy with augmentin No abscess collection on CT scan POD 2 s/p Incision and drainage, wound culture prelim, no growth However, patient has tenosynovitis, ortho following Continue Unasyn 3000 mg and doxycycline 100mg q12hr, low suspicion for MRSA-day 4 Continue to monitor (2) Cat bite Current Visit: Yes Status: Acute Assessment and Plan: as in cellulitis Received TT 07/14 (3) Tenosynovitis Current Visit: Yes Status: Acute Assessment and Plan: as in cellulitis R hand CT noted, ortho is seeing in consult, POD 2 s/p I and D Continue antibiotics, as in cellulitis Wound cultures sent , prelim, no growth (4) Anxiety Current Visit: Yes Status: Chronic Assessment and Plan: continue home meds (5) Asthma Current Visit: Yes Status: Chronic Assessment and Plan: continue home meds Duonebs prn (6) Chronic obstructive pulmonary disease without exacerbation Current Visit: Yes Status: Chronic Assessment and Plan: not in exacerbation Continue home meds Duoneb prn (7) Morbid obesity Current Visit: Yes Status: Chronic Assessment and Plan: lifestyle modification (8) Tobacco use disorder Current Visit: Yes Status: Chronic Assessment and Plan: encourage cessation NRT 21mg daily (9) Diarrhea Current Visit: Yes Status: Acute Assessment and Plan: at least 5 episodes of watery diarrhea overnight, in patient with IBS, and on antibiotivs She also has a new leukocuytosis afebrile, WBC 12 r/o C.diff , stool sent Start probiotic BID DVT Prophylaxis: SQ heparin - Time Spent with Patient Total time spent is greater than 50% in coordination of care (as documented) at patient's floor/unit and/or counseling patient: Plan of Care Discussed with: patient Internal Medicine: Result - Labs CBC & Chem 7: 07/17/18 06:28 07/17/18 06:28 Labs: Short CBC 07/17/18 Range/Units 06:28 WBC 12.7 H (4.3-11.1) K/mcL Hgb 11.4 L (11.5-15.4) g/dL Hct 38.2 (35.3-44.9) % Plt Count 257 (140-400) K/mcL Neutrophils # 6.7 (1.6-8.9) K/mcL BMP 07/17/18 06:28 Sodium 143 Potassium 3.8 Chloride 109 H Carbon Dioxide 29 BUN 10 Creatinine 0.61 Glucose 86 Calcium 8.5 L Consult Discharge Plan - Plan Referrals: Kiley Freeman, [employer] [Primary Care Provider] - (1) Cellulitis Qualifiers: Site of cellulitis: extremity Site of cellulitis of extremity: upper extremity Laterality: right Qualified Code(s): L03.113 - Cellulitis of right upper limb (2) Cat bite Qualifiers: Encounter type: initial encounter Qualified Code(s): W55.01XA - Bitten by cat, initial encounter (5) Asthma Qualifiers: Asthma severity: mild Asthma persistence: unspecified Asthma complication type: uncomplicated Qualified Code(s): J45.909 - Unspecified asthma, uncomplicated (9) Diarrhea Qualifiers: Diarrhea type: unspecified type Qualified Code(s): R19.7 - Diarrhea, unspecified
[2018-07-17] MEDS ORDERED: Lactobacillus 1 EACH CAP.SPRINK PO SCH (11:15)
[2018-07-17 11:22] VITALS: BP 116/71
--- NOTE | 2018-07-17 14:21 | Discharge Summary ---
- NOTES TO OUTPATIENT PROVIDER Notes to Outpatient Provider: Follow up with PCP for chronic medical problem, follow up with orthopedics for right hand wound care Orders not resulted at time of discharge: Pending orders 07/15/18 15:36 Culture,Anaerobic [RM] Routine Culture,Wound [RM] Routine Date of Encounter: 07/17/18 Time of Encounter: 14:20 - Discharge Diagnosis (1) Cellulitis Priority: Primary Status: Acute Assessment and Plan: Patient with no fever, leukocytosis on presentation, who was admitted after a cat bite Failed outpatient therapy with augmentin No abscess collection on CT scan POD 2 s/p Incision and drainage, wound culture prelim, no growth However, patient has tenosynovitis, she will follow up with orthopedics as out-patient She has received 4 days of IV Unasyn and Doxycycline here We have discharged on po doxycyline for 5 more days Qualifiers: Site of cellulitis: extremity Site of cellulitis of extremity: upper extremity Laterality: right Qualified Code(s): L03.113 - Cellulitis of right upper limb (2) Diarrhea Priority: Primary Status: Acute Assessment and Plan: Uninfective C.diff negative Patient with hx of IBS Continue probiotic at home [place] fluid hydration Follow up with PCP Qualifiers: Diarrhea type: unspecified type Qualified Code(s): R19.7 - Diarrhea, unspecified (3) Cat bite Priority: Primary Status: Acute Assessment and Plan: as in cellulitis Received TD vaccine on 07/14 Qualifiers: Encounter type: initial encounter Qualified Code(s): W55.01XA - Bitten by cat, initial encounter (4) Tenosynovitis Priority: Primary Status: Acute Assessment and Plan: management is as in cellulitis (5) Anxiety Priority: Secondary Status: Chronic (6) Asthma Priority: Secondary Status: Chronic Qualifiers: Asthma severity: mild Asthma persistence: unspecified Asthma complication type: uncomplicated Qualified Code(s): J45.909 - Unspecified asthma, uncomplicated (7) Chronic obstructive pulmonary disease without exacerbation Priority: Secondary Status: Chronic (8) Morbid obesity Priority: Secondary Status: Chronic (9) Tobacco use disorder Priority: Secondary Status: Chronic Hospital course: Ms. Stratton 48 F admitted on 07/14 for R hand cellulitis and tenosynovitis following a stray cat bite She was given Td shot 11/1 She has no fever POD 2 s/o I and D of R hand by orthopedics surgery She developed multiple episodes of watery diarrhea overnight 07/17 , she has a hx of IBS, C.DIFF NEGATIVE She was started on a probiotic and has been clinically stable Patient was seen this mrn, apart from diarrhea, no complains, remains afebrile, wound cultures with no growth at this time She is discharged home with doxycycline and probiotic and appropriate follow up with PCP and Orthopedics Represent to ER for new fever, worsening hand pain, discharge, continuous diarrhea Discharge discussed with: patient, nurse Time spent discussing smoking cessation with patient: 3 to 10 minutes (3 mins spent daily on tobacco cesation counselling) - Time Spent with Patient Total time spent providing and/or coordinating discharge services: Greater than 30 minutes (40 mins spent because patient was seen as progess note and discharg) - Discharge Medications Home Medications: ALPRAZolam [Xanax 1 MG Tablet] 1 mg PO TID PRN 02/01/18 [History] Aspirin 81 mg PO DAILY 02/01/18 [History] Atorvastatin Calcium [Lipitor] 20 mg PO HS 02/01/18 [History] Cyclobenzaprine [Flexeril] 10 mg PO HS 02/01/18 [History] Duloxetine HCl [Cymbalta] 60 mg PO DAILY 02/01/18 [History] Fluticasone Propionate Nasal [Flonase] 1 spr NS DAILY PRN 02/01/18 [History] Furosemide [Lasix] 20 mg PO DAILY PRN 02/01/18 [History] Gabapentin [Neurontin] 600 mg PO QID 02/01/18 [History] Mometasone/Formoterol [Dulera 200 Mcg/5 Mcg Inhaler] 2 puff IH BID 02/01/18 [History] Montelukast [Singulair] 10 mg PO HS 02/01/18 [History] Omeprazole [PriLOSEC] 40 mg PO DAILY 02/01/18 [History] Oxycodone HCl 15 mg PO 5XD 02/01/18 [History] Potassium Chloride [K-Tab ER] 10 meq PO DAILY 02/01/18 [History] Tiotropium [place] [Spiriva Respimat] 2 puff IH DAILY 02/01/18 [History] Trazodone HCl 100 mg PO HS 02/01/18 [History] Amoxicillin/Clavulanate [Augmentin] 875 mg PO BID #20 tablet 07/10/18 [Rx] Allergies/Adverse Reactions: Allergy/AdvReac Type Severity Reaction Status Date / Time hydrocodone [From Vicodin] Allergy Rash Verified 07/10/18 15:35 Sulfa (Sulfonamide Allergy Swelling Verified 07/10/18 15:35 Antibiotics) of Lip/Tongue/Throat Buspirone [From BuSpar] AdvReac Difficulty Verified 07/10/18 15:35 Breathing cefdinir AdvReac Diarrhea Verified 07/10/18 15:35 clindamycin AdvReac Hives Verified 07/10/18 15:35 Date of admission: 07/14/18 15:07 Primary care physician: Kiley Freeman CNP Consults: 07/15/18 09:21 Consult to Invasive Line Access Team [CONS] Routine Reason for Consult: limited access Line Type: EPIV Time Notified: 09:21 Call Completed: Yes Discharging clinician: Sebastien Durham Anticipated date of discharge: 07/17/18 - Constitutional Vitals: Temp Pulse Resp BP Pulse Ox 99.3 F 95 17 116/71 93 07/17/18 11:21 07/17/18 11:21 07/17/18 11:21 07/17/18 11:21 07/17/18 11:21 General appearance: Present: A&O X 3, morbidly obese, pleasant, no acute distress Exam: Vitals stable, afebrile Gen: Morbidly obese, not in distress HEENT: Moist oral mucosa, not pale, anicteric Chest: Equal chest movt bilaterally Resp: Few scattered wheezing bilaterally Heart: S1, S2 only, no m/g/r Abdomen: Soft, not tender Extremities:Right wrist in dressing, clean and dry, dressing not removed - Patient Status Disposition: Home, Self-Care Condition: Good Functional capacity at discharge: independent ambulation Overall status at discharge: patient is back to baseline - Discharge Instructions Follow Up With: Kiley Freeman CNP [Primary Care Provider] - - Diet and Activity Activity: resume usual activities as tolerated Diet: low fat, low cholesterol, low salt diet
== END 2018-07-17 15:48 | disposition home or self-care (01) | DRG 383 ==
LOC: EMEROOARM 12:45 → 3NENU 15:07 → SUATTDRO 15:07 → 3NENU 16:10
PROVIDERS: ADMIT Internal Medicine; ATTEND Internal Medicine